=== PATIENT | female | born 1945 | race Caucasian/White ===

== ENCOUNTER → 2016-03-14 | Outpatient (REF) | payer MEDICARE ==
[2016-03-14 16:54] LABS: ALBUMIN 3.5 GM/DL (3.2-5.2); ALKALINE PHOSPHATASE 128 U/L (45-117); ALT/SGPT 17 U/L (12-78); ANION GAP 8 MEQ/L (8-16); AST/SGOT 13 U/L (15-37); BILIRUBIN,TOTAL 0.5 MG/DL (0.2-1.0); BLOOD UREA NITROGEN 10 MG/DL (7-18); CALCIUM LEVEL 9.2 MG/DL (8.8-10.2); CARBON DIOXIDE LEVEL 31 MEQ/L (21-32); CHLORIDE LEVEL 100 MEQ/L (98-107); CHOLESTEROL LEVEL 183 MG/DL (<200); CREATININE FOR GFR 0.72 MG/DL (0.55-1.02); GLOMERULAR FILTRATION RATE > 60.0 (>45); GLUCOSE, FASTING 92 MG/DL (80-110); POTASSIUM SERUM 4.4 MEQ/L (3.5-5.1); SODIUM LEVEL 139 MEQ/L (136-145); TRIGLYCERIDES LEVEL 94 MG/DL (<150)
== END ==
LOC: M SFHCPLAZ 11:11
PROVIDERS: ATTEND Family Medicine
DX: I10 Essential (primary) hypertension (principal); E78.00 Pure hypercholesterolemia, unspecified; F32.9 Major depressive disorder, single episode, unspecified; Z68.41 Body mass index [BMI] 40.0-44.9, adult
CPT/HCPCS: 36415; 80053; 80061; 84443; G0463

== ENCOUNTER → 2016-05-12 | Outpatient (REF) | payer MEDICARE ==
[2016-05-13 09:26] LABS: HIV SCRN NEGATIVE (NEGATIVE)
[2016-05-13 09:27] LABS: CONTROL LINE INT CTR LINE PRESENT; HIV SCRN1 NEGATIVE (NEGATIVE)
== END ==
LOC: M SFHCPLAZ 14:54
PROVIDERS: ATTEND Nurse Practitioner Family
DX: Z11.59 Encounter for screening for other viral diseases (principal); Z11.4 Encounter for screening for human immunodeficiency virus [HIV]; Z23 Encounter for immunization
CPT/HCPCS: 36415; 86803; 87806; 90662; G0008; G0463

== ENCOUNTER → 2016-10-05 | Outpatient (CLI) | payer MEDICARE, MEDICAID ==
--- NOTE | 2016-10-05 16:26 | REP ---
DOPPLER VENOUS ULTRASOUND LEFT LOWER EXTREMITY: 10/05/2016. Comparison: None: Clinical history: Left lower extremity pain, evaluate for DVT. Technique: The deep venous system of the left lower extremity is evaluated with garcia scale imaging, compression ultrasound, color imaging and duplex Doppler interrogation. Examination from the groin through the popliteal fossa into the proximal calf. Findings: There is full compressibility from the common femoral vein in the inguinal region through the popliteal vein. Color imaging confirms patency throughout the course of the deep venous system. There is respiratory variation and augmented flow at all levels. Impression: 1. No Doppler venous ultrasound evidence of DVT in the left lower extremity. Signed by Leon Masterson MD 10/05/2016 04:17 P
== END ==
LOC: M RAD 15:45
PROVIDERS: ATTEND Nurse Practitioner Family
DX: M79.605 Pain in left leg (principal); I83.90 Asymptomatic varicose veins of unspecified lower extremity
CPT/HCPCS: 93971; G0463

== ENCOUNTER 2017-11-01 11:13 | Inpatient (IN) | payer MEDICARE, MEDICAID ==
[2017-11-01] MEDS: NS 1,000 ML IV ×2 (11:50→17:00)
[2017-11-01 12:02] LABS: HEMATOCRIT 37.2 % (36.0-47.0); HEMOGLOBIN 13.5 g/dl (12.0-15.5); MEAN CORPUSCULAR HEMOGLOBIN 29.9 pg (27.0-33.0); MEAN CORPUSCULAR HGB CONC 36.3 g/dl (32.0-36.5); MEAN CORPUSCULAR VOLUME 82.3 fl (80.0-96.0); PLATELET COUNT, AUTOMATED 202 10^3/uL (150-450); RED BLOOD COUNT 4.52 10^6/uL (4.00-5.40); RED CELL DISTRIBUTION WIDTH 13.2 % (11.5-14.5); WHITE BLOOD COUNT 20.8 10^3/uL (4.0-10.0)
[2017-11-01 12:04] LABS: VENOUS BASE EXCESS -4.5 (-2.0-2.0); VENOUS HCO3 21.8 MEQ/L (23.0-27.0); VENOUS O2 SATURATION 64.1 % (60.0-80.0); VENOUS PARTIAL PRESSURE CO2 44.4 mmHg (38.0-50.0); VENOUS PARTIAL PRESSURE O2 35.4 mmHg (30.0-50.0); VENOUS PH 7.308 UNITS (7.330-7.430); VENOUS TOTAL CO2 23.1 MEQ/L (24.0-28.0)
[2017-11-01 12:10] LABS: POSITIVE MORPH POS FLAG
[2017-11-01 12:11] LABS: ADD MANUAL DIFFER YES; DIFF SLIDE NUMBER 253
[2017-11-01] MEDS ORDERED: NS IV (12:30)
[2017-11-01] MEDS ORDERED: DILUENT IV (12:30)
[2017-11-01 12:31] LABS: AMMONIA 17 uMOL/L (<32)
[2017-11-01 12:37] LABS: ALKALINE PHOSPHATASE 95 U/L (45-117); ALT/SGPT 36 U/L (12-78); ANION GAP 17 MEQ/L (8-16); AST/SGOT 44 U/L (7-37); BLOOD UREA NITROGEN 40 MG/DL (7-18); CALCIUM LEVEL 8.3 MG/DL (8.8-10.2); CARBON DIOXIDE LEVEL 20 MEQ/L (21-32); CHLORIDE LEVEL 84 MEQ/L (98-107); CPK CREATINE PHOSPHOKINASE 585 U/L (26-192); CREATININE FOR GFR 3.49 MG/DL (0.55-1.30); GLOMERULAR FILTRATION RATE 13.8 (>39); GLUCOSE, FASTING 85 MG/DL (70-100); POTASSIUM SERUM 3.5 MEQ/L (3.5-5.1); SODIUM LEVEL 121 MEQ/L (136-145)
[2017-11-01 12:38] LABS: ALBUMIN/GLOBULIN RATIO 0.67 (1.00-1.93); BILIRUBIN,DIRECT 0.3 MG/DL (0.0-0.2); BILIRUBIN,TOTAL 0.5 MG/DL (0.2-1.0); TROPONIN I 0.19 NG/ML (< 0.10)
[2017-11-01 12:43] LABS: CK-MB VALUE MASS 21.3 NG/ML (<3.6); MB/CK RELATIVE INDEX 3.64 (< OR =4); THYROID STIMULATING HORMONE 0.957 uIU/ML (0.358-3.740)
[2017-11-01 12:46] LABS: LYMPHOCYTES 5 % (16-52); MONOCYTES 4 % (0-8); NEUTROPHILS 91 % (35-75); PLATELET ESTIMATE NORMAL (NORMAL)
[2017-11-01 13:40] LABS: LACTIC ACID SEPSIS PROTOCOL 1.4 MMOL/L (0.4-2.0)
[2017-11-01] MEDS ORDERED: ONDANSETRON 4MG/2ML VIAL (J2405) IV (15:00)
[2017-11-01 15:02] LABS: FREE T4 1.37 NG/DL (0.76-1.46)
[2017-11-01 15:09] LABS: OSMOLALITY SERUM 256 MOSM/KG (280-301)
[2017-11-01] MEDS ORDERED: PILL CRUSHER/CUTTER 1 EACH XX (15:15)
[2017-11-01 15:19] LABS: OSMOLALITY URINE 231 MOSM/KG (500-800)
[2017-11-01 15:29] LABS: KETONE, URINE AUTO RFX NEGATIVE (NEGATIVE); NITRITE, URINE AUTO RFX NEGATIVE (NEGATIVE); RBC, URINE AUTO RFX 8 /HPF (0-3); SODIUM,RANDOM URINE 28 MEQ/L; SPECIFIC GRAVITY UR AUTO RFX 1.011 (1.002-1.035); SQUAM EPITHELIAL CELL UR AURFX 3 /HPF (0-6)
[2017-11-01 15:38] LABS: LEUKOCYTE ESTERASE UR AUTO RFX 3+ (NEGATIVE); WBC, URINE AUTO RFX TNTC /HPF (0-3)
[2017-11-01 18:33] LABS: ANION GAP 17 MEQ/L (8-16); BLOOD UREA NITROGEN 40 MG/DL (7-18); CARBON DIOXIDE LEVEL 19 MEQ/L (21-32); CHLORIDE LEVEL 87 MEQ/L (98-107); CK-MB VALUE MASS 17.2 NG/ML (<3.6); CPK CREATINE PHOSPHOKINASE 410 U/L (26-192); CREATININE FOR GFR 3.67 MG/DL (0.55-1.30); GLUCOSE, FASTING 69 MG/DL (70-100); MB/CK RELATIVE INDEX 4.19 (< OR =4); POTASSIUM SERUM 3.7 MEQ/L (3.5-5.1); SODIUM LEVEL 123 MEQ/L (136-145)
[2017-11-01] MEDS: ADVAIR HFA 115/21MCG INHALER INH (19:38)
[2017-11-01] MEDS: MONTELUKAST 10 MG TAB PO (21:00)
[2017-11-01] MEDS: NYSTATIN 100,000 UNITS/GM TOPICAL PWD 15 GM TOP (21:00)
[2017-11-01] MEDS: FAMOTIDINE 20 MG TAB PO (21:00)
[2017-11-02] MEDS: NS 1,000 ML IV ×3 (00:57→22:13)
[2017-11-02 01:08] LABS: ANION GAP 17 MEQ/L (8-16); BLOOD UREA NITROGEN 46 MG/DL (7-18); CALCIUM LEVEL 8.3 MG/DL (8.8-10.2); CARBON DIOXIDE LEVEL 20 MEQ/L (21-32); CHLORIDE LEVEL 85 MEQ/L (98-107); CK-MB VALUE MASS 12.5 NG/ML (<3.6); CPK CREATINE PHOSPHOKINASE 255 U/L (26-192); CREATININE FOR GFR 3.93 MG/DL (0.55-1.30); GLUCOSE, FASTING 91 MG/DL (70-100); POTASSIUM SERUM 3.3 MEQ/L (3.5-5.1); SODIUM LEVEL 122 MEQ/L (136-145)
[2017-11-02 06:55] LABS: MEAN CORPUSCULAR HEMOGLOBIN 29.6 pg (27.0-33.0); MEAN CORPUSCULAR HGB CONC 36.1 g/dl (32.0-36.5); PLATELET COUNT, AUTOMATED 216 10^3/uL (150-450); RED BLOOD COUNT 4.39 10^6/uL (4.00-5.40); RED CELL DISTRIBUTION WIDTH 13.5 % (11.5-14.5); WHITE BLOOD COUNT 18.5 10^3/uL (4.0-10.0)
[2017-11-02 07:10] LABS: ALBUMIN 1.8 GM/DL (3.2-5.2); ALBUMIN/GLOBULIN RATIO 0.46 (1.00-1.93); ALKALINE PHOSPHATASE 107 U/L (45-117); ALT/SGPT 33 U/L (12-78); ANION GAP 19 MEQ/L (8-16); AST/SGOT 32 U/L (7-37); BILIRUBIN,TOTAL 0.4 MG/DL (0.2-1.0); BLOOD UREA NITROGEN 51 MG/DL (7-18); CALCIUM LEVEL 8.2 MG/DL (8.8-10.2); CARBON DIOXIDE LEVEL 16 MEQ/L (21-32); CHLORIDE LEVEL 87 MEQ/L (98-107); CREATININE FOR GFR 4.05 MG/DL (0.55-1.30); GLOMERULAR FILTRATION RATE 11.6 (>39); GLUCOSE, FASTING 83 MG/DL (70-100); MAGNESIUM LEVEL 2.2 MG/DL (1.8-2.4); POTASSIUM SERUM 3.3 MEQ/L (3.5-5.1); SODIUM LEVEL 122 MEQ/L (136-145); TOTAL PROTEIN 5.7 GM/DL (6.4-8.2)
[2017-11-02] MEDS: ADVAIR HFA 115/21MCG INHALER INH ×2 (08:00→20:05)
[2017-11-02] MEDS: NS 500 ML IV (09:09)
[2017-11-02] MEDS: FAMOTIDINE 20 MG TAB PO ×2 (09:12→20:31)
[2017-11-02] MEDS ORDERED: MEROPENEM INJ 2 GM in NS 100 ML IV (11:00)
[2017-11-02 11:02] LABS: CK-MB VALUE MASS 8.1 NG/ML (<3.6); CPK CREATINE PHOSPHOKINASE 129 U/L (26-192); MB/CK RELATIVE INDEX 6.27 (< OR =4)
[2017-11-02] MEDS: NYSTATIN 100,000 UNITS/GM TOPICAL PWD 15 GM TOP ×2 (11:44→22:19)
[2017-11-02] MEDS: MEROPENEM INJ 500 MG in APPROPRIATE DILUENT 1 EA IV (11:44)
[2017-11-02] MEDS: ENOXAPARIN 30 MG/0.3 ML SYR (J1650) SC (11:53)
[2017-11-02 12:34] LABS: ANION GAP 16 MEQ/L (8-16); BLOOD UREA NITROGEN 51 MG/DL (7-18); CALCIUM LEVEL 8.1 MG/DL (8.8-10.2); CARBON DIOXIDE LEVEL 19 MEQ/L (21-32); CHLORIDE LEVEL 88 MEQ/L (98-107); CREATININE FOR GFR 4.27 MG/DL (0.55-1.30); GLOMERULAR FILTRATION RATE 10.9 (>39); GLUCOSE, FASTING 81 MG/DL (70-100); POTASSIUM SERUM 3.5 MEQ/L (3.5-5.1); SODIUM LEVEL 123 MEQ/L (136-145)
[2017-11-02 18:44] LABS: ANION GAP 18 MEQ/L (8-16); BLOOD UREA NITROGEN 53 MG/DL (7-18); CALCIUM LEVEL 8.3 MG/DL (8.8-10.2); CARBON DIOXIDE LEVEL 17 MEQ/L (21-32); CHLORIDE LEVEL 89 MEQ/L (98-107); CREATININE FOR GFR 4.34 MG/DL (0.55-1.30); GLOMERULAR FILTRATION RATE 10.7 (>39); GLUCOSE, FASTING 76 MG/DL (70-100); POTASSIUM SERUM 3.4 MEQ/L (3.5-5.1); SODIUM LEVEL 124 MEQ/L (136-145)
[2017-11-02] MEDS: MONTELUKAST 10 MG TAB PO (20:31)
[2017-11-03 00:43] LABS: ANION GAP 14 MEQ/L (8-16); BLOOD UREA NITROGEN 56 MG/DL (7-18); CALCIUM LEVEL 7.9 MG/DL (8.8-10.2); CARBON DIOXIDE LEVEL 21 MEQ/L (21-32); CHLORIDE LEVEL 89 MEQ/L (98-107); CREATININE FOR GFR 4.67 MG/DL (0.55-1.30); GLOMERULAR FILTRATION RATE 9.8 (>39); GLUCOSE, FASTING 93 MG/DL (70-100); POTASSIUM SERUM 3.1 MEQ/L (3.5-5.1); SODIUM LEVEL 124 MEQ/L (136-145)
[2017-11-03] MEDS: MEROPENEM INJ 500 MG in APPROPRIATE DILUENT 1 EA IV ×3 (00:50→23:47)
[2017-11-03 05:25] LABS: HEMATOCRIT 34.9 % (36.0-47.0); HEMOGLOBIN 12.6 g/dl (12.0-15.5); MEAN CORPUSCULAR HGB CONC 36.1 g/dl (32.0-36.5); MEAN CORPUSCULAR VOLUME 83.1 fl (80.0-96.0); PLATELET COUNT, AUTOMATED 243 10^3/uL (150-450); RED CELL DISTRIBUTION WIDTH 13.6 % (11.5-14.5); WHITE BLOOD COUNT 22.1 10^3/uL (4.0-10.0)
[2017-11-03 05:41] LABS: ANION GAP 15 MEQ/L (8-16); BLOOD UREA NITROGEN 56 MG/DL (7-18); CARBON DIOXIDE LEVEL 19 MEQ/L (21-32); CHLORIDE LEVEL 91 MEQ/L (98-107); CREATININE FOR GFR 4.64 MG/DL (0.55-1.30); GLOMERULAR FILTRATION RATE 9.9 (>39); GLUCOSE, FASTING 92 MG/DL (70-100); POTASSIUM SERUM 3.3 MEQ/L (3.5-5.1); SODIUM LEVEL 125 MEQ/L (136-145)
[2017-11-03] MEDS: NS 1,000 ML IV ×2 (06:57→16:08)
[2017-11-03] MEDS: ADVAIR HFA 115/21MCG INHALER INH ×2 (07:17→20:00)
[2017-11-03] MEDS: ENOXAPARIN 30 MG/0.3 ML SYR (J1650) SC (08:00)
[2017-11-03] MEDS: FAMOTIDINE 20 MG TAB PO ×2 (08:00→20:51)
[2017-11-03] MEDS: NYSTATIN 100,000 UNITS/GM TOPICAL PWD 15 GM TOP ×2 (08:00→20:53)
[2017-11-03 12:46] LABS: ANION GAP 14 MEQ/L (8-16); BLOOD UREA NITROGEN 59 MG/DL (7-18); CALCIUM LEVEL 7.9 MG/DL (8.8-10.2); CARBON DIOXIDE LEVEL 22 MEQ/L (21-32); CHLORIDE LEVEL 89 MEQ/L (98-107); CREATININE FOR GFR 4.88 MG/DL (0.55-1.30); GLOMERULAR FILTRATION RATE 9.3 (>39); GLUCOSE, FASTING 110 MG/DL (70-100); POTASSIUM SERUM 3.6 MEQ/L (3.5-5.1); SODIUM LEVEL 125 MEQ/L (136-145)
[2017-11-03 15:03] LABS: CORTISOL PM 32.6 UG/DL (3.1-16.7)
[2017-11-03] MEDS: THIAMINE 100 MG TAB PO (18:29)
[2017-11-03] MEDS: MONTELUKAST 10 MG TAB PO (20:51)
[2017-11-03] MEDS: NICOTINE 21MG/24HR 1 EA TRANSDERMAL TD (20:52)
[2017-11-03] MEDS: LORazepam 2 MG TAB PO (21:49)
[2017-11-04] MEDS: NS 1,000 ML IV ×2 (03:00→11:48)
[2017-11-04 05:11] LABS: HEMATOCRIT 37.8 % (36.0-47.0); HEMOGLOBIN 13.1 g/dl (12.0-15.5); MEAN CORPUSCULAR HEMOGLOBIN 29.6 pg (27.0-33.0); MEAN CORPUSCULAR HGB CONC 34.7 g/dl (32.0-36.5); MEAN CORPUSCULAR VOLUME 85.3 fl (80.0-96.0); PLATELET COUNT, AUTOMATED 223 10^3/uL (150-450); RED BLOOD COUNT 4.43 10^6/uL (4.00-5.40)
[2017-11-04] MEDS: ADVAIR HFA 115/21MCG INHALER INH ×2 (07:20→20:00)
[2017-11-04] MEDS: MULTIVITAMINS/MINERALS THERAP 1 TAB PO (09:00)
[2017-11-04] MEDS: FOLIC ACID 1 MG TAB PO (09:00)
[2017-11-04] MEDS: THIAMINE 100 MG TAB PO ×2 (09:00→20:43)
[2017-11-04] MEDS: ENOXAPARIN 30 MG/0.3 ML SYR (J1650) SC (09:00)
[2017-11-04] MEDS: FAMOTIDINE 20 MG TAB PO ×2 (09:00→20:43)
[2017-11-04] MEDS: NYSTATIN 100,000 UNITS/GM TOPICAL PWD 15 GM TOP ×2 (09:01→20:44)
[2017-11-04 11:11] LABS: ALBUMIN 1.6 GM/DL (3.2-5.2); ANION GAP 14 MEQ/L (8-16); BLOOD UREA NITROGEN 64 MG/DL (7-18); CARBON DIOXIDE LEVEL 18 MEQ/L (21-32); CHLORIDE LEVEL 93 MEQ/L (98-107); CREATININE FOR GFR 5.07 MG/DL (0.55-1.30); GLOMERULAR FILTRATION RATE 8.9 (>39); GLUCOSE, FASTING 112 MG/DL (70-100); PHOSPHORUS LEVEL 4.1 MG/DL (2.5-4.9); POTASSIUM SERUM 3.5 MEQ/L (3.5-5.1); SODIUM LEVEL 125 MEQ/L (136-145)
[2017-11-04] MEDS: AMPICILLIN SOD/SULBACTAM SOD 1.5 GM in D5W MINI-BAG PLUS 50 ML IV (11:48)
[2017-11-04 12:08] LABS: OSMOLALITY URINE 187 MOSM/KG (500-800)
[2017-11-04 12:32] LABS: CREATININE,RANDOM URINE 60.9 MG/DL; SODIUM,RANDOM URINE 25 MEQ/L
[2017-11-04] MEDS: FUROSEMIDE 100 MG/10 ML VIAL (J1940) IV (13:01)
[2017-11-04] MEDS: SODIUM BICARBONATE 325 MG TAB PO ×2 (14:08→20:43)
[2017-11-04] MEDS: LORazepam 2 MG TAB PO ×2 (17:42→21:51)
[2017-11-04] MEDS: NICOTINE 21MG/24HR 1 EA TRANSDERMAL TD (20:43)
[2017-11-04] MEDS: MONTELUKAST 10 MG TAB PO (20:43)
[2017-11-05 05:32] LABS: HEMATOCRIT 37.9 % (36.0-47.0); HEMOGLOBIN 13.3 g/dl (12.0-15.5); MEAN CORPUSCULAR HEMOGLOBIN 29.6 pg (27.0-33.0); MEAN CORPUSCULAR HGB CONC 35.1 g/dl (32.0-36.5); MEAN CORPUSCULAR VOLUME 84.2 fl (80.0-96.0); PLATELET COUNT, AUTOMATED 251 10^3/uL (150-450); RED CELL DISTRIBUTION WIDTH 14.2 % (11.5-14.5); WHITE BLOOD COUNT 22.9 10^3/uL (4.0-10.0)
[2017-11-05 05:50] LABS: ANION GAP 13 MEQ/L (8-16); BLOOD UREA NITROGEN 72 MG/DL (7-18); CALCIUM LEVEL 8.5 MG/DL (8.8-10.2); CARBON DIOXIDE LEVEL 16 MEQ/L (21-32); CHLORIDE LEVEL 94 MEQ/L (98-107); CREATININE FOR GFR 5.36 MG/DL (0.55-1.30); GLOMERULAR FILTRATION RATE 8.4 (>39); GLUCOSE, FASTING 87 MG/DL (70-100); POTASSIUM SERUM 3.8 MEQ/L (3.5-5.1); SODIUM LEVEL 123 MEQ/L (136-145)
[2017-11-05] MEDS: ADVAIR HFA 115/21MCG INHALER INH ×2 (07:23→20:00)
[2017-11-05] MEDS: LORazepam 2 MG TAB PO (08:35)
[2017-11-05] MEDS: ENOXAPARIN 30 MG/0.3 ML SYR (J1650) SC (08:35)
[2017-11-05] MEDS: MULTIVITAMINS/MINERALS THERAP 1 TAB PO (08:35)
[2017-11-05] MEDS: SODIUM BICARBONATE 325 MG TAB PO ×3 (08:36→20:04)
[2017-11-05] MEDS: THIAMINE 100 MG TAB PO ×2 (08:37→20:04)
[2017-11-05] MEDS: FOLIC ACID 1 MG TAB PO (08:37)
[2017-11-05] MEDS: FAMOTIDINE 20 MG TAB PO ×2 (08:37→20:03)
[2017-11-05] MEDS: NYSTATIN 100,000 UNITS/GM TOPICAL PWD 15 GM TOP ×2 (08:37→20:05)
[2017-11-05] MEDS ORDERED: LORazepam 1 MG TAB PO (11:15)
[2017-11-05] MEDS: LevoFLOXacin IV 750 MG in APPROPRIATE DILUENT 1 EA IV (12:37)
[2017-11-05] MEDS: TOLVAPTAN 7.5 MG HALF-TAB PO (12:38)
[2017-11-05 19:34] LABS: ALBUMIN 1.7 GM/DL (3.2-5.2); ANION GAP 13 MEQ/L (8-16); BLOOD UREA NITROGEN 72 MG/DL (7-18); CARBON DIOXIDE LEVEL 19 MEQ/L (21-32); CHLORIDE LEVEL 94 MEQ/L (98-107); CREATININE FOR GFR 5.62 MG/DL (0.55-1.30); GLOMERULAR FILTRATION RATE 7.9 (>39); GLUCOSE, FASTING 82 MG/DL (70-100); PHOSPHORUS LEVEL 5.7 MG/DL (2.5-4.9); POTASSIUM SERUM 4.3 MEQ/L (3.5-5.1); SODIUM LEVEL 126 MEQ/L (136-145)
[2017-11-05] MEDS: NICOTINE 21MG/24HR 1 EA TRANSDERMAL TD (20:03)
[2017-11-05] MEDS: MONTELUKAST 10 MG TAB PO (20:04)
[2017-11-06 06:04] LABS: HEMATOCRIT 35.3 % (36.0-47.0); HEMOGLOBIN 12.2 g/dl (12.0-15.5); MEAN CORPUSCULAR HEMOGLOBIN 30.1 pg (27.0-33.0); MEAN CORPUSCULAR HGB CONC 34.6 g/dl (32.0-36.5); MEAN CORPUSCULAR VOLUME 87.2 fl (80.0-96.0); PLATELET COUNT, AUTOMATED 212 10^3/uL (150-450); RED BLOOD COUNT 4.05 10^6/uL (4.00-5.40); RED CELL DISTRIBUTION WIDTH 14.4 % (11.5-14.5); WHITE BLOOD COUNT 22.1 10^3/uL (4.0-10.0)
[2017-11-06 06:17] LABS: ALBUMIN 1.8 GM/DL (3.2-5.2); ANION GAP 14 MEQ/L (8-16); BLOOD UREA NITROGEN 83 MG/DL (7-18); CALCIUM LEVEL 8.3 MG/DL (8.8-10.2); CARBON DIOXIDE LEVEL 17 MEQ/L (21-32); CHLORIDE LEVEL 95 MEQ/L (98-107); CREATININE FOR GFR 5.82 MG/DL (0.55-1.30); GLOMERULAR FILTRATION RATE 7.6 (>39); GLUCOSE, FASTING 80 MG/DL (70-100); POTASSIUM SERUM 4.4 MEQ/L (3.5-5.1); SODIUM LEVEL 126 MEQ/L (136-145)
[2017-11-06] MEDS: ADVAIR HFA 115/21MCG INHALER INH ×2 (08:00→20:00)
[2017-11-06] MEDS: ENOXAPARIN 30 MG/0.3 ML SYR (J1650) SC (09:07)
[2017-11-06] MEDS: SODIUM BICARBONATE 325 MG TAB PO ×3 (09:07→20:00)
[2017-11-06] MEDS: FAMOTIDINE 20 MG TAB PO ×2 (09:07→20:00)
[2017-11-06] MEDS: MULTIVITAMINS/MINERALS THERAP 1 TAB PO (09:07)
[2017-11-06] MEDS: THIAMINE 100 MG TAB PO (09:07)
[2017-11-06] MEDS: NYSTATIN 100,000 UNITS/GM TOPICAL PWD 15 GM TOP ×2 (09:08→20:01)
[2017-11-06] MEDS: FOLIC ACID 1 MG TAB PO (09:08)
[2017-11-06] MEDS ORDERED: SLF 3 ML SYR IV (11:00)
[2017-11-06] MEDS: SLF 3 ML SYR IV ×2 (12:54→20:00)
[2017-11-06] MEDS: NS 1,000 ML IV (12:55)
[2017-11-06] MEDS: NICOTINE 21MG/24HR 1 EA TRANSDERMAL TD (20:00)
[2017-11-06] MEDS: MONTELUKAST 10 MG TAB PO (20:00)
[2017-11-07] MEDS: SLF 3 ML SYR IV ×3 (04:08→22:00)
[2017-11-07 06:41] LABS: HEMATOCRIT 34.2 % (36.0-47.0); HEMOGLOBIN 11.9 g/dl (12.0-15.5); MEAN CORPUSCULAR HEMOGLOBIN 29.7 pg (27.0-33.0); MEAN CORPUSCULAR HGB CONC 34.8 g/dl (32.0-36.5); MEAN CORPUSCULAR VOLUME 85.3 fl (80.0-96.0); PLATELET COUNT, AUTOMATED 231 10^3/uL (150-450); RED BLOOD COUNT 4.01 10^6/uL (4.00-5.40); RED CELL DISTRIBUTION WIDTH 14.4 % (11.5-14.5)
[2017-11-07 07:09] LABS: ALBUMIN 1.8 GM/DL (3.2-5.2); ANION GAP 12 MEQ/L (8-16); BLOOD UREA NITROGEN 79 MG/DL (7-18); CALCIUM LEVEL 8.3 MG/DL (8.8-10.2); CARBON DIOXIDE LEVEL 18 MEQ/L (21-32); CHLORIDE LEVEL 97 MEQ/L (98-107); CREATININE FOR GFR 6.03 MG/DL (0.55-1.30); GLOMERULAR FILTRATION RATE 7.3 (>39); GLUCOSE, FASTING 88 MG/DL (70-100); MAGNESIUM LEVEL 2.1 MG/DL (1.8-2.4); PHOSPHORUS LEVEL 5.6 MG/DL (2.5-4.9); POTASSIUM SERUM 4.3 MEQ/L (3.5-5.1); SODIUM LEVEL 127 MEQ/L (136-145)
[2017-11-07] MEDS: ADVAIR HFA 115/21MCG INHALER INH ×2 (07:46→21:00)
[2017-11-07] MEDS: NYSTATIN 100,000 UNITS/GM TOPICAL PWD 15 GM TOP ×2 (09:05→20:56)
[2017-11-07] MEDS: ENOXAPARIN 30 MG/0.3 ML SYR (J1650) SC (09:05)
[2017-11-07] MEDS: MULTIVITAMINS/MINERALS THERAP 1 TAB PO (09:05)
[2017-11-07] MEDS: FOLIC ACID 1 MG TAB PO (09:06)
[2017-11-07] MEDS: SODIUM BICARBONATE 325 MG TAB PO ×3 (09:07→20:54)
[2017-11-07] MEDS: FAMOTIDINE 20 MG TAB PO ×2 (09:07→20:54)
[2017-11-07] MEDS: LevoFLOXacin IV 500 MG in APPROPRIATE DILUENT 1 EA IV (12:01)
[2017-11-07] MEDS: ACETAMINOPHEN TAB 650MG DOSE (2X325MG) PO (15:24)
[2017-11-07 16:15] LABS: CHOLESTEROL LEVEL 120 MG/DL (<200); HDL CHOLESTEROL 30 MG/DL (>40); HEPATITIS B SURFACE ANTIBODY NEGATIVE (POSITIVE); HEPATITIS B SURFACE ANTIGEN NEGATIVE (NEGATIVE); HEPATITIS C VIRUS ABY INDEX 0.1 INDEX (<0.8); LDL CHOLESTEROL 59 MG/DL (<100); NON-HDL-C 90 MG/DL; TRIGLYCERIDES LEVEL 153 MG/DL (<150)
[2017-11-07 17:16] LABS: HEPATITIS B CORE ANTIBODY IGM NEGATIVE (NEGATIVE)
[2017-11-07 19:08] LABS: ESTIMATED AVERAGE GLUCOSE 120 MG/DL (60-110); HEMOGLOBIN A1c 5.8 %
[2017-11-07] MEDS: MONTELUKAST 10 MG TAB PO (20:54)
[2017-11-07] MEDS: NICOTINE 21MG/24HR 1 EA TRANSDERMAL TD (20:55)
[2017-11-08] MEDS: ACETAMINOPHEN TAB 650MG DOSE (2X325MG) PO ×2 (00:15→14:59)
[2017-11-08] MEDS: LORazepam 0.5 MG TAB PO (01:38)
[2017-11-08 05:41] LABS: HEMATOCRIT 33.6 % (36.0-47.0); HEMOGLOBIN 11.7 g/dl (12.0-15.5); MEAN CORPUSCULAR HEMOGLOBIN 29.5 pg (27.0-33.0); MEAN CORPUSCULAR HGB CONC 34.8 g/dl (32.0-36.5); MEAN CORPUSCULAR VOLUME 84.8 fl (80.0-96.0); PLATELET COUNT, AUTOMATED 183 10^3/uL (150-450); RED BLOOD COUNT 3.96 10^6/uL (4.00-5.40); RED CELL DISTRIBUTION WIDTH 14.3 % (11.5-14.5); WHITE BLOOD COUNT 16.4 10^3/uL (4.0-10.0)
[2017-11-08 05:57] LABS: ANION GAP 12 MEQ/L (8-16); BLOOD UREA NITROGEN 80 MG/DL (7-18); CALCIUM LEVEL 8.7 MG/DL (8.8-10.2); CARBON DIOXIDE LEVEL 20 MEQ/L (21-32); CHLORIDE LEVEL 99 MEQ/L (98-107); CREATININE FOR GFR 6.19 MG/DL (0.55-1.30); GLOMERULAR FILTRATION RATE 7.1 (>39); GLUCOSE, FASTING 94 MG/DL (70-100); PHOSPHORUS LEVEL 5.1 MG/DL (2.5-4.9); POTASSIUM SERUM 4.2 MEQ/L (3.5-5.1); SODIUM LEVEL 131 MEQ/L (136-145)
[2017-11-08] MEDS: SLF 3 ML SYR IV ×3 (06:00→22:07)
[2017-11-08] MEDS: ADVAIR HFA 115/21MCG INHALER INH ×2 (07:47→20:53)
[2017-11-08 10:12] LABS: HEPATITIS B CORE ANTIBODY IGG Negative (Negative)
[2017-11-08] MEDS: FAMOTIDINE 20 MG TAB PO ×2 (11:04→22:04)
[2017-11-08] MEDS: FOLIC ACID 1 MG TAB PO (11:04)
[2017-11-08] MEDS: SODIUM BICARBONATE 325 MG TAB PO ×3 (11:05→21:00)
[2017-11-08] MEDS: ENOXAPARIN 30 MG/0.3 ML SYR (J1650) SC (11:05)
[2017-11-08] MEDS: NYSTATIN 100,000 UNITS/GM TOPICAL PWD 15 GM TOP ×2 (11:05→22:07)
[2017-11-08] MEDS: MULTIVITAMINS/MINERALS THERAP 1 TAB PO (11:05)
[2017-11-08] MEDS ORDERED: HEPARIN 1,000 UNITS/ML 10ML VIAL (FOR RADIOLOGY& DIALYSIS ONLY) As Ordered (12:12)
[2017-11-08] MEDS ORDERED: LIDOCAINE 2% MDV 20 ML VIAL As Ordered (12:12)
[2017-11-08] MEDS: HEPARIN 1,000 UNITS/ML 10ML VIAL (FOR RADIOLOGY& DIALYSIS ONLY) IV (14:30)
[2017-11-08] MEDS: HEPARIN 1,000 UNITS/ML 10ML VIAL (FOR RADIOLOGY& DIALYSIS ONLY) XX (14:30)
[2017-11-08] MEDS: MONTELUKAST 10 MG TAB PO (21:00)
[2017-11-08] MEDS: NICOTINE 21MG/24HR 1 EA TRANSDERMAL TD (22:06)
[2017-11-09] MEDS: SLF 3 ML SYR IV ×3 (06:00→21:38)
[2017-11-09 06:01] LABS: HEMATOCRIT 33.8 % (36.0-47.0); HEMOGLOBIN 11.5 g/dl (12.0-15.5); MEAN CORPUSCULAR HEMOGLOBIN 29.6 pg (27.0-33.0); MEAN CORPUSCULAR VOLUME 86.9 fl (80.0-96.0); PLATELET COUNT, AUTOMATED 191 10^3/uL (150-450); RED BLOOD COUNT 3.89 10^6/uL (4.00-5.40); RED CELL DISTRIBUTION WIDTH 14.7 % (11.5-14.5); WHITE BLOOD COUNT 16.9 10^3/uL (4.0-10.0)
[2017-11-09 06:45] LABS: ANION GAP 9 MEQ/L (8-16); BLOOD UREA NITROGEN 57 MG/DL (7-18); CALCIUM LEVEL 8.6 MG/DL (8.8-10.2); CARBON DIOXIDE LEVEL 21 MEQ/L (21-32); CHLORIDE LEVEL 103 MEQ/L (98-107); CREATININE FOR GFR 4.84 MG/DL (0.55-1.30); GLOMERULAR FILTRATION RATE 9.4 (>39); GLUCOSE, FASTING 92 MG/DL (70-100); PHOSPHORUS LEVEL 4.8 MG/DL (2.5-4.9); POTASSIUM SERUM 4.3 MEQ/L (3.5-5.1); SODIUM LEVEL 133 MEQ/L (136-145)
[2017-11-09] MEDS: ADVAIR HFA 115/21MCG INHALER INH ×2 (08:01→20:00)
[2017-11-09] MEDS: ENOXAPARIN 30 MG/0.3 ML SYR (J1650) SC (09:43)
[2017-11-09] MEDS: NYSTATIN 100,000 UNITS/GM TOPICAL PWD 15 GM TOP ×2 (09:44→20:35)
[2017-11-09] MEDS: FAMOTIDINE 20 MG TAB PO ×2 (09:44→20:33)
[2017-11-09] MEDS: FOLIC ACID 1 MG TAB PO (09:44)
[2017-11-09] MEDS: SODIUM BICARBONATE 325 MG TAB PO ×3 (09:44→20:33)
[2017-11-09] MEDS: LevoFLOXacin IV 500 MG in APPROPRIATE DILUENT 1 EA IV (09:44)
[2017-11-09] MEDS: MULTIVITAMINS/MINERALS THERAP 1 TAB PO (09:45)
[2017-11-09] MEDS: LORazepam 0.5 MG TAB PO ×2 (12:52→21:32)
[2017-11-09] MEDS: HEPARIN 1,000 UNITS/ML 10ML VIAL (FOR RADIOLOGY& DIALYSIS ONLY) XX (18:28)
[2017-11-09] MEDS: ALTEPLASE 2 MG/2 ML VIAL (J2997 PER 1MG) XX (18:28)
[2017-11-09] MEDS: HEPARIN 1,000 UNITS/ML 10ML VIAL (FOR RADIOLOGY& DIALYSIS ONLY) IV (18:28)
[2017-11-09] MEDS: MONTELUKAST 10 MG TAB PO (20:33)
[2017-11-09] MEDS: NICOTINE 21MG/24HR 1 EA TRANSDERMAL TD (20:35)
[2017-11-10] MEDS: SLF 3 ML SYR IV ×3 (05:31→20:31)
[2017-11-10 06:12] LABS: HEMATOCRIT 34.7 % (36.0-47.0); HEMOGLOBIN 11.6 g/dl (12.0-15.5); MEAN CORPUSCULAR HEMOGLOBIN 29.5 pg (27.0-33.0); MEAN CORPUSCULAR HGB CONC 33.4 g/dl (32.0-36.5); MEAN CORPUSCULAR VOLUME 88.3 fl (80.0-96.0); PLATELET COUNT, AUTOMATED 183 10^3/uL (150-450); RED BLOOD COUNT 3.93 10^6/uL (4.00-5.40); RED CELL DISTRIBUTION WIDTH 14.6 % (11.5-14.5); WHITE BLOOD COUNT 14.7 10^3/uL (4.0-10.0)
[2017-11-10 06:29] LABS: ALBUMIN 2.2 GM/DL (3.2-5.2); ANION GAP 7 MEQ/L (8-16); BLOOD UREA NITROGEN 41 MG/DL (7-18); CALCIUM LEVEL 8.8 MG/DL (8.8-10.2); CARBON DIOXIDE LEVEL 25 MEQ/L (21-32); CHLORIDE LEVEL 102 MEQ/L (98-107); GLOMERULAR FILTRATION RATE 11.8 (>39); GLUCOSE, FASTING 96 MG/DL (70-100); PHOSPHORUS LEVEL 3.8 MG/DL (2.5-4.9); POTASSIUM SERUM 4.3 MEQ/L (3.5-5.1); SODIUM LEVEL 134 MEQ/L (136-145)
[2017-11-10] MEDS: ADVAIR HFA 115/21MCG INHALER INH ×2 (07:13→20:00)
[2017-11-10] MEDS: FAMOTIDINE 20 MG TAB PO ×2 (10:10→20:30)
[2017-11-10] MEDS: MULTIVITAMINS/MINERALS THERAP 1 TAB PO (10:10)
[2017-11-10] MEDS: ENOXAPARIN 30 MG/0.3 ML SYR (J1650) SC (10:10)
[2017-11-10] MEDS: FOLIC ACID 1 MG TAB PO (10:10)
[2017-11-10] MEDS: NYSTATIN 100,000 UNITS/GM TOPICAL PWD 15 GM TOP ×2 (10:11→20:31)
[2017-11-10] MEDS: LORazepam 0.5 MG TAB PO (17:23)
[2017-11-10] MEDS: MONTELUKAST 10 MG TAB PO (20:30)
[2017-11-10] MEDS: NICOTINE 21MG/24HR 1 EA TRANSDERMAL TD (20:31)
[2017-11-11] MEDS: LORazepam 0.5 MG TAB PO (00:21)
[2017-11-11] MEDS: ACETAMINOPHEN TAB 650MG DOSE (2X325MG) PO (05:00)
[2017-11-11] MEDS: LevoFLOXacin 500 MG TABLET PO (05:01)
[2017-11-11 05:59] LABS: HEMOGLOBIN 10.8 g/dl (12.0-15.5); MEAN CORPUSCULAR HEMOGLOBIN 29.8 pg (27.0-33.0); MEAN CORPUSCULAR HGB CONC 33.8 g/dl (32.0-36.5); MEAN CORPUSCULAR VOLUME 88.4 fl (80.0-96.0); PLATELET COUNT, AUTOMATED 143 10^3/uL (150-450); RED BLOOD COUNT 3.62 10^6/uL (4.00-5.40); RED CELL DISTRIBUTION WIDTH 14.7 % (11.5-14.5)
[2017-11-11] MEDS: SLF 3 ML SYR IV ×3 (06:00→20:28)
[2017-11-11 06:35] LABS: ALBUMIN 2.1 GM/DL (3.2-5.2); ANION GAP 10 MEQ/L (8-16); BLOOD UREA NITROGEN 43 MG/DL (7-18); CALCIUM LEVEL 8.5 MG/DL (8.8-10.2); CARBON DIOXIDE LEVEL 22 MEQ/L (21-32); CHLORIDE LEVEL 104 MEQ/L (98-107); CREATININE FOR GFR 3.88 MG/DL (0.55-1.30); GLOMERULAR FILTRATION RATE 12.2 (>39); GLUCOSE, FASTING 98 MG/DL (70-100); PHOSPHORUS LEVEL 4.1 MG/DL (2.5-4.9); POTASSIUM SERUM 4.2 MEQ/L (3.5-5.1); SODIUM LEVEL 136 MEQ/L (136-145)
[2017-11-11] MEDS: ENOXAPARIN 30 MG/0.3 ML SYR (J1650) SC (09:00)
[2017-11-11] MEDS: ADVAIR HFA 115/21MCG INHALER INH ×2 (09:26→20:26)
[2017-11-11] MEDS: FAMOTIDINE 20 MG TAB PO ×2 (10:32→20:26)
[2017-11-11] MEDS: FOLIC ACID 1 MG TAB PO (10:33)
[2017-11-11] MEDS: NYSTATIN 100,000 UNITS/GM TOPICAL PWD 15 GM TOP ×2 (10:33→20:27)
[2017-11-11] MEDS: MULTIVITAMINS/MINERALS THERAP 1 TAB PO (10:33)
[2017-11-11] MEDS: MONTELUKAST 10 MG TAB PO (20:26)
[2017-11-11] MEDS: NICOTINE 21MG/24HR 1 EA TRANSDERMAL TD (20:27)
[2017-11-12 05:41] LABS: HEMATOCRIT 31.7 % (36.0-47.0); HEMOGLOBIN 10.6 g/dl (12.0-15.5); MEAN CORPUSCULAR HEMOGLOBIN 29.5 pg (27.0-33.0); MEAN CORPUSCULAR HGB CONC 33.4 g/dl (32.0-36.5); MEAN CORPUSCULAR VOLUME 88.3 fl (80.0-96.0); PLATELET COUNT, AUTOMATED 140 10^3/uL (150-450); RED BLOOD COUNT 3.59 10^6/uL (4.00-5.40); RED CELL DISTRIBUTION WIDTH 14.5 % (11.5-14.5); WHITE BLOOD COUNT 11.8 10^3/uL (4.0-10.0)
[2017-11-12 05:52] LABS: ALBUMIN 2.1 GM/DL (3.2-5.2); ANION GAP 9 MEQ/L (8-16); BLOOD UREA NITROGEN 46 MG/DL (7-18); CALCIUM LEVEL 8.4 MG/DL (8.8-10.2); CARBON DIOXIDE LEVEL 23 MEQ/L (21-32); CHLORIDE LEVEL 104 MEQ/L (98-107); CREATININE FOR GFR 3.91 MG/DL (0.55-1.30); GLOMERULAR FILTRATION RATE 12.1 (>39); GLUCOSE, FASTING 88 MG/DL (70-100); PHOSPHORUS LEVEL 4.7 MG/DL (2.5-4.9); POTASSIUM SERUM 4.4 MEQ/L (3.5-5.1); SODIUM LEVEL 136 MEQ/L (136-145)
[2017-11-12] MEDS: SLF 3 ML SYR IV ×3 (06:00→20:41)
[2017-11-12] MEDS: FOLIC ACID 1 MG TAB PO (09:42)
[2017-11-12] MEDS: FAMOTIDINE 20 MG TAB PO ×2 (09:42→20:40)
[2017-11-12] MEDS: MULTIVITAMINS/MINERALS THERAP 1 TAB PO (09:42)
[2017-11-12] MEDS: NYSTATIN 100,000 UNITS/GM TOPICAL PWD 15 GM TOP ×2 (09:42→20:41)
[2017-11-12] MEDS: ENOXAPARIN 30 MG/0.3 ML SYR (J1650) SC (09:46)
[2017-11-12] MEDS: ADVAIR HFA 115/21MCG INHALER INH ×2 (09:50→20:59)
[2017-11-12] MEDS: ACETAMINOPHEN TAB 650MG DOSE (2X325MG) PO (16:15)
[2017-11-12] MEDS: MONTELUKAST 10 MG TAB PO (20:40)
[2017-11-12] MEDS: NICOTINE 21MG/24HR 1 EA TRANSDERMAL TD (20:41)
[2017-11-12] MEDS: LORazepam 0.5 MG TAB PO (22:09)
[2017-11-13] MEDS: ACETAMINOPHEN TAB 650MG DOSE (2X325MG) PO (05:02)
[2017-11-13] MEDS: SLF 3 ML SYR IV ×3 (05:03→20:10)
[2017-11-13] MEDS: LevoFLOXacin 500 MG TABLET PO (05:03)
[2017-11-13 05:25] LABS: HEMATOCRIT 32.2 % (36.0-47.0); MEAN CORPUSCULAR HEMOGLOBIN 29.8 pg (27.0-33.0); MEAN CORPUSCULAR HGB CONC 34.2 g/dl (32.0-36.5); MEAN CORPUSCULAR VOLUME 87.3 fl (80.0-96.0); PLATELET COUNT, AUTOMATED 145 10^3/uL (150-450); RED BLOOD COUNT 3.69 10^6/uL (4.00-5.40); RED CELL DISTRIBUTION WIDTH 14.6 % (11.5-14.5); WHITE BLOOD COUNT 13.7 10^3/uL (4.0-10.0)
[2017-11-13 05:42] LABS: ALBUMIN 2.3 GM/DL (3.2-5.2); ANION GAP 11 MEQ/L (8-16); BLOOD UREA NITROGEN 43 MG/DL (7-18); CALCIUM LEVEL 8.7 MG/DL (8.8-10.2); CARBON DIOXIDE LEVEL 22 MEQ/L (21-32); CHLORIDE LEVEL 105 MEQ/L (98-107); CREATININE FOR GFR 3.77 MG/DL (0.55-1.30); GLOMERULAR FILTRATION RATE 12.6 (>39); GLUCOSE, FASTING 97 MG/DL (70-100); PHOSPHORUS LEVEL 4.3 MG/DL (2.5-4.9); POTASSIUM SERUM 4.5 MEQ/L (3.5-5.1); SODIUM LEVEL 138 MEQ/L (136-145)
[2017-11-13] MEDS: NYSTATIN 100,000 UNITS/GM TOPICAL PWD 15 GM TOP ×2 (09:00→20:09)
[2017-11-13] MEDS: ENOXAPARIN 30 MG/0.3 ML SYR (J1650) SC (09:00)
[2017-11-13] MEDS: FAMOTIDINE 20 MG TAB PO ×2 (09:00→20:08)
[2017-11-13] MEDS: MULTIVITAMINS/MINERALS THERAP 1 TAB PO (09:00)
[2017-11-13] MEDS: FOLIC ACID 1 MG TAB PO (09:00)
[2017-11-13] MEDS: ADVAIR HFA 115/21MCG INHALER INH ×2 (11:29→20:35)
[2017-11-13 12:38] LABS: C REACTIVE PROTEIN QUANTITATIV 7.57 MG/DL (0.00-0.30)
[2017-11-13] MEDS: MONTELUKAST 10 MG TAB PO (20:08)
[2017-11-13] MEDS: NICOTINE 21MG/24HR 1 EA TRANSDERMAL TD (20:09)
[2017-11-14] MEDS: SLF 3 ML SYR IV ×3 (06:01→21:00)
[2017-11-14 06:37] LABS: HEMATOCRIT 33.1 % (36.0-47.0); MEAN CORPUSCULAR HEMOGLOBIN 29.3 pg (27.0-33.0); MEAN CORPUSCULAR HGB CONC 33.2 g/dl (32.0-36.5); PLATELET COUNT, AUTOMATED 139 10^3/uL (150-450); RED BLOOD COUNT 3.76 10^6/uL (4.00-5.40); RED CELL DISTRIBUTION WIDTH 14.1 % (11.5-14.5)
[2017-11-14] MEDS: ADVAIR HFA 115/21MCG INHALER INH ×2 (08:00→21:28)
[2017-11-14 08:59] LABS: ALBUMIN 2.4 GM/DL (3.2-5.2); ANION GAP 10 MEQ/L (8-16); BLOOD UREA NITROGEN 42 MG/DL (7-18); CALCIUM LEVEL 8.2 MG/DL (8.8-10.2); CARBON DIOXIDE LEVEL 23 MEQ/L (21-32); CHLORIDE LEVEL 103 MEQ/L (98-107); CREATININE FOR GFR 3.55 MG/DL (0.55-1.30); GLOMERULAR FILTRATION RATE 13.5 (>39); GLUCOSE, FASTING 87 MG/DL (70-100); PHOSPHORUS LEVEL 4.3 MG/DL (2.5-4.9); POTASSIUM SERUM 4.7 MEQ/L (3.5-5.1); SODIUM LEVEL 136 MEQ/L (136-145)
[2017-11-14] MEDS: NYSTATIN 100,000 UNITS/GM TOPICAL PWD 15 GM TOP ×2 (09:00→21:00)
[2017-11-14] MEDS: ENOXAPARIN 30 MG/0.3 ML SYR (J1650) SC (09:30)
[2017-11-14] MEDS: MULTIVITAMINS/MINERALS THERAP 1 TAB PO (09:30)
[2017-11-14] MEDS: FAMOTIDINE 20 MG TAB PO ×2 (09:30→20:50)
[2017-11-14] MEDS: LORazepam 0.5 MG TAB PO (09:30)
[2017-11-14] MEDS: FOLIC ACID 1 MG TAB PO (09:30)
[2017-11-14] MEDS: METOPROLOL TART 25 MG TABLET PO ×2 (12:37→20:52)
[2017-11-14] MEDS: NICOTINE 21MG/24HR 1 EA TRANSDERMAL TD (20:49)
[2017-11-14] MEDS: MONTELUKAST 10 MG TAB PO (20:50)
[2017-11-15] MEDS: SLF 3 ML SYR IV (05:29)
[2017-11-15] MEDS: LevoFLOXacin 500 MG TABLET PO (05:48)
[2017-11-15 07:10] LABS: HEMATOCRIT 30.2 % (36.0-47.0); HEMOGLOBIN 10.2 g/dl (12.0-15.5); MEAN CORPUSCULAR HEMOGLOBIN 29.7 pg (27.0-33.0); MEAN CORPUSCULAR HGB CONC 33.8 g/dl (32.0-36.5); PLATELET COUNT, AUTOMATED 139 10^3/uL (150-450); RED BLOOD COUNT 3.43 10^6/uL (4.00-5.40); RED CELL DISTRIBUTION WIDTH 14.2 % (11.5-14.5); WHITE BLOOD COUNT 8.9 10^3/uL (4.0-10.0)
[2017-11-15 07:24] LABS: ALBUMIN 2.2 GM/DL (3.2-5.2); ANION GAP 10 MEQ/L (8-16); BLOOD UREA NITROGEN 42 MG/DL (7-18); CALCIUM LEVEL 8.4 MG/DL (8.8-10.2); CARBON DIOXIDE LEVEL 24 MEQ/L (21-32); CHLORIDE LEVEL 104 MEQ/L (98-107); CREATININE FOR GFR 3.25 MG/DL (0.55-1.30); GLOMERULAR FILTRATION RATE 14.9 (>39); GLUCOSE, FASTING 90 MG/DL (70-100); PHOSPHORUS LEVEL 4.6 MG/DL (2.5-4.9); POTASSIUM SERUM 4.5 MEQ/L (3.5-5.1); SODIUM LEVEL 138 MEQ/L (136-145)
[2017-11-15] MEDS: ADVAIR HFA 115/21MCG INHALER INH (08:24)
[2017-11-15] MEDS: FAMOTIDINE 20 MG TAB PO (09:13)
[2017-11-15] MEDS: NYSTATIN 100,000 UNITS/GM TOPICAL PWD 15 GM TOP (09:14)
[2017-11-15] MEDS: MULTIVITAMINS/MINERALS THERAP 1 TAB PO (09:14)
[2017-11-15] MEDS: ENOXAPARIN 30 MG/0.3 ML SYR (J1650) SC (09:14)
[2017-11-15] MEDS: FOLIC ACID 1 MG TAB PO (09:14)
[2017-11-15] MEDS: METOPROLOL TART 25 MG TABLET PO (09:14)
== END 2017-11-15 12:50 | disposition home health service (06) | DRG 871 ==
LOC: M MS4PR 11-13 21:54 → M PCU 11-02 15:42 → M ED 11:13 → M ED INP 14:56
PROC: 02HV33Z Insertion of Infusion Device into Superior Vena Cava, Percutaneous Approach (ICD-10-PCS; principal; 2017-11-08)
PROC: 0JH63XZ Insertion of Tunneled Vascular Access Device into Chest Subcutaneous Tissue and Fascia, Percutaneous Approach (ICD-10-PCS; 2017-11-08)
PROC: 5A1D70Z Performance of Urinary Filtration, Intermittent, Less than 6 Hours Per Day (ICD-10-PCS; 2017-11-08)
DX: A41.51 Sepsis due to Escherichia coli [E. coli] (principal); N17.0 Acute kidney failure with tubular necrosis; E87.1 Hypo-osmolality and hyponatremia; Z68.41 Body mass index [BMI] 40.0-44.9, adult; E87.2 Acidosis; N39.0 Urinary tract infection, site not specified; E66.01 Morbid (severe) obesity due to excess calories; R65.20 Severe sepsis without septic shock; G47.33 Obstructive sleep apnea (adult) (pediatric); F10.10 Alcohol abuse, uncomplicated; J45.909 Unspecified asthma, uncomplicated; I10 Essential (primary) hypertension; K21.9 Gastro-esophageal reflux disease without esophagitis; Z79.899 Other long term (current) drug therapy; B35.8 Other dermatophytoses; G25.81 Restless legs syndrome; M19.90 Unspecified osteoarthritis, unspecified site; E87.5 Hyperkalemia; Z86.73 Personal history of transient ischemic attack (TIA), and cerebral infarction without residual deficits; Z90.11 Acquired absence of right breast and nipple; Z90.12 Acquired absence of left breast and nipple; N39.3 Stress incontinence (female) (male); F17.210 Nicotine dependence, cigarettes, uncomplicated; E83.39 Other disorders of phosphorus metabolism; D63.1 Anemia in chronic kidney disease

== ENCOUNTER → 2017-11-17 | Outpatient (REF) | payer MEDICARE, MEDICAID ==
[2017-11-17 15:01] LABS: HEMOGLOBIN 10.7 g/dl (12.0-15.5); MEAN CORPUSCULAR HEMOGLOBIN 29.6 pg (27.0-33.0); MEAN CORPUSCULAR HGB CONC 33.4 g/dl (32.0-36.5); MEAN CORPUSCULAR VOLUME 88.4 fl (80.0-96.0); PLATELET COUNT, AUTOMATED 181 10^3/uL (150-450); RED BLOOD COUNT 3.62 10^6/uL (4.00-5.40); WHITE BLOOD COUNT 7.6 10^3/uL (4.0-10.0)
[2017-11-17 16:28] LABS: ALBUMIN 2.6 GM/DL (3.2-5.2); ALBUMIN/GLOBULIN RATIO 0.62 (1.00-1.93); ALKALINE PHOSPHATASE 77 U/L (45-117); ALT/SGPT 28 U/L (12-78); ANION GAP 8 MEQ/L (8-16); AST/SGOT 23 U/L (7-37); BILIRUBIN,TOTAL 0.6 MG/DL (0.2-1.0); BLOOD UREA NITROGEN 36 MG/DL (7-18); CALCIUM LEVEL 8.3 MG/DL (8.8-10.2); CARBON DIOXIDE LEVEL 28 MEQ/L (21-32); CHLORIDE LEVEL 101 MEQ/L (98-107); CREATININE FOR GFR 3.13 MG/DL (0.55-1.30); GLOMERULAR FILTRATION RATE 15.6 (>39); GLUCOSE, FASTING 89 MG/DL (70-100); POTASSIUM SERUM 4.8 MEQ/L (3.5-5.1); SODIUM LEVEL 137 MEQ/L (136-145); TOTAL PROTEIN 6.8 GM/DL (6.4-8.2)
== END ==
LOC: M SFHCPLAZ 13:59 → M SFHCADAM 14:00
DX: N17.9 Acute kidney failure, unspecified (principal)
CPT/HCPCS: 80053

== ENCOUNTER → 2017-11-22 | Outpatient (REF) | payer MEDICARE, MEDICAID | LOC: M SFHCPLAZ 11:00 | DX: N17.9 Acute kidney failure, unspecified (principal) ==

== ENCOUNTER → 2017-11-23 | Outpatient (REF) | payer MEDICARE, MEDICAID | LOC: M LAB REF 17:03 | DX: N39.0 Urinary tract infection, site not specified (principal) | CPT/HCPCS: 87086 ==

== ENCOUNTER 2018-09-20 15:49 | Emergency (ER) | payer MEDICARE, MEDICAID ==
[~2018-09-20] VITALS: Ht 167.6 cm; Wt 114.7 kg
[~2018-09-20 15:49] MED LIST: ADV250INH INH; AMLO25TA PO; BENA20TA8 PO; FOLI1TAB11 PO; FURO20TA2 PO; LEVA1TAB2 PO; METO1TAB87 PO; MONT10TA2 PO; NICO21PAT TD; RANI150T PO; SPIR-10 PO
[2018-09-20 18:32] LABS: BASO # 0.1 10^3/uL (0.0-0.2); BASO % 0.7 % (0.0-1.0); EOS # 0.2 10^3/uL (0.0-0.50); HEMATOCRIT 39.7 % (36.0-47.0); HEMOGLOBIN 12.8 g/dl (12.0-15.5); LYMPH # 1.9 10^3/uL (1.5-4.5); LYMPH % 17.5 % (24.0-44.0); MEAN CORPUSCULAR HEMOGLOBIN 30.2 pg (27.0-33.0); MEAN CORPUSCULAR HGB CONC 32.2 g/dl (32.0-36.5); MEAN CORPUSCULAR VOLUME 93.6 fl (80.0-96.0); MONO # 0.8 10^3/uL (0.0-0.8); MONO % 7.8 % (0.0-5.0); NEUTROPHILS # 7.6 10^3/uL (1.8-7.7); PLATELET COUNT, AUTOMATED 199 10^3/uL (150-450); RED BLOOD COUNT 4.24 10^6/uL (4.00-5.40); WHITE BLOOD COUNT 10.7 10^3/uL (4.0-10.0)
[2018-09-20 19:19] LABS: ERYTHROCYTE SEDIMENTATION RATE 28 mm/hr (0-30)
--- NOTE | 2018-09-20 19:26 | REPVR ---
EXAM: US Duplex Left Lower Extremity Veins, Limited EXAM DATE/TIME: 09/20/2018 6:39 PM CLINICAL HISTORY: 72 years old, female; Other: Red streak, hot to touch lt lateral leg; Additional info: Red streak, warmth TECHNIQUE: Imaging protocol: Real-time Duplex ultrasound of the Left Lower Extremity with 2-D garcia scale, color Doppler flow and spectral waveform analysis with image documentation. Limited exam focused on the left lower extremity veins. COMPARISON: US Duplex, Ext,LOWER veins,unilat LEFT 10/05/2016 3:58 PM FINDINGS: Left deep veins: Unremarkable. The common femoral, proximal profunda femoral, femoral and popliteal veins are patent without thrombus. Normal compressibility, augmentation response and Doppler waveforms. Left superficial veins: Thrombosed superficial varicosities along the lateral aspect of the knee. Saphenofemoral junction is patent without thrombus. Soft tissues: Unremarkable. IMPRESSION: 1. No sonographic evidence of deep vein thrombosis. 2. Thrombosed superficial varicosities along the lateral aspect of the knee. Electronically signed by: Jaziel Kaba On 09/20/2018 19:25:43 PM
[2018-09-20 19:57] VITALS: BP 154/76
== END 2018-09-20 20:03 | disposition home or self-care (01) ==
LOC: M ED 15:49
DX: I80.02 Phlebitis and thrombophlebitis of superficial vessels of left lower extremity (principal); I10 Essential (primary) hypertension; E78.5 Hyperlipidemia, unspecified; J44.9 Chronic obstructive pulmonary disease, unspecified; Z72.0 Tobacco use; Z79.899 Other long term (current) drug therapy

== ENCOUNTER 2018-12-09 14:19 | Emergency (ER) | payer MEDICARE, MEDICAID ==
[~2018-12-09] VITALS: Ht 167.6 cm; Wt 118.2 kg
[2018-12-09 14:20] VITALS: BP 134/66
[2018-12-09] MEDS ORDERED: PRED20TA PO (15:27)
[2018-12-09] MEDS ORDERED: diphenhydrAMINE 25 MG CAP PO ONE (15:30)
[2018-12-09] MEDS ORDERED: predniSONE 20 MG TAB PO ONE (15:30)
== END 2018-12-09 16:03 | disposition home or self-care (01) ==
LOC: M ED 14:19
DX: T78.3XXA Angioneurotic edema, initial encounter (principal); Y92.9 Unspecified place or not applicable; Y93.9 Activity, unspecified; F17.200 Nicotine dependence, unspecified, uncomplicated; E78.00 Pure hypercholesterolemia, unspecified; I10 Essential (primary) hypertension; J45.909 Unspecified asthma, uncomplicated; J44.9 Chronic obstructive pulmonary disease, unspecified; G47.30 Sleep apnea, unspecified; K21.9 Gastro-esophageal reflux disease without esophagitis; F32.9 Major depressive disorder, single episode, unspecified; Z87.448 Personal history of other diseases of urinary system; Z79.899 Other long term (current) drug therapy

== ENCOUNTER 2020-07-12 12:43 | Emergency (ER) | payer OTHER, MEDICAID ==
[~2020-07-12] VITALS: Ht 170.2 cm; Wt 110.6 kg
[~2020-07-12 12:43] MED LIST changes: +MONT10TA10 PO; -MONT10TA2 PO; +PRED20TA PO
--- NOTE | 2020-07-12 13:38 | REP ---
INDICATION: fall into coffee table left rib pain. COMPARISON: Chest 11/01/2017. TECHNIQUE: Four views left ribs, frontal view chest. FINDINGS: I see no evidence of left rib fracture or bone lesion. There is mild elevation of left hemidiaphragm. There is mild bibasilar fibro atelectatic change. There is no pneumothorax or pleural effusion. Heart is normal in size. There is some calcification of the thoracic aorta. IMPRESSION: No radiographic evidence of left rib fracture. <Electronically signed by Robert Hsu > 07/12/20 [id number]
[2020-07-12] MEDS ORDERED: ONDANSETRON 4MG/2ML VIAL IV ONE (14:15)
[2020-07-12] MEDS ORDERED: MORPHINE 2 MG/ML 1ML VIAL (J2270) IV ONE (14:15)
[2020-07-12] MEDS ORDERED: ISOVUE-370 76% 100ML VIAL As Ordered ONE (14:59)
--- NOTE | 2020-07-12 15:48 | REP ---
INDICATION: fall into coffee table, bruising L flank, sig pain COMPARISON: 11/01/2017. TECHNIQUE: CT Scan of the abdomen and pelvis was performed with intravenous administration of 100 cc of Isovue 370, without oral contrast. Sagittal and coronal reconstruction images are performed. FINDINGS: Lung bases: There are bibasilar fibrotic changes with a calcified granuloma again seen in the left upper lobe. Liver: Normal Gallbladder: Unremarkable. Spleen: Normal. Adrenals: There are stable bilateral adrenal adenomas. Pancreas: Normal. Kidneys: There are atrophic changes of both kidneys. There is moderate calcific plaque at the origin of both renal arteries suggesting bilateral renal artery stenosis. Small and large bowel: There is mild left colonic diverticulosis with no acute bowel inflammation. No free air is seen. Free fluid: None. Abdominal aorta: No aneurysm or dissection. Adenopathy: None. Appendix: Not inflamed. Osseous structures: There are degenerative changes of the spine without compression deformity. There are nondisplaced fractures of the anterior ends of the left 6th and 7th ribs. Pelvis: No mass. There is a 1.7 cm calcification in the right ovary. IMPRESSION: There are nondisplaced fractures of the anterior ends of the left 6th and 7th ribs. No free air or free fluid. No other acute finding. <Electronically signed by Robert Hsu > 07/12/20 [id number]
[2020-07-12] MEDS ORDERED: HYDR-3713 PO (16:22)
[2020-07-12] MEDS ORDERED: NORCO, ANEXSIA 5/325MG TABLET (HYDROcodone/ACETAMINOPHEN) PO ONE (16:25)
[2020-07-12 16:53] VITALS: BP 154/55
== END 2020-07-12 16:43 | disposition home or self-care (01) ==
LOC: M ED 12:43
DX: S22.42XA Multiple fractures of ribs, left side, initial encounter for closed fracture (principal); S30.1XXA Contusion of abdominal wall, initial encounter; W22.8XXA Striking against or struck by other objects, initial encounter; Y92.009 Unspecified place in unspecified non-institutional (private) residence as the place of occurrence of the external cause; Y93.89 Activity, other specified; Y99.9 Unspecified external cause status; I10 Essential (primary) hypertension; E78.5 Hyperlipidemia, unspecified; K21.9 Gastro-esophageal reflux disease without esophagitis; J45.909 Unspecified asthma, uncomplicated; J44.9 Chronic obstructive pulmonary disease, unspecified; Z86.73 Personal history of transient ischemic attack (TIA), and cerebral infarction without residual deficits; F17.200 Nicotine dependence, unspecified, uncomplicated; Z79.899 Other long term (current) drug therapy
CPT/HCPCS: 71101; 74177; 80047; 86850; 86900; 86901; 94010; 99284; Q9967

== ENCOUNTER → 2020-09-28 | Outpatient (REF) | payer OTHER, MEDICAID ==
[~2020-09-28] MED LIST changes: +BENA-8 PO; -BENA20TA8 PO; +HYDR-3713 PO; -MONT10TA10 PO; +MONT10TA97 PO
[2020-09-28 13:39] LABS: HEMOGLOBIN 13.2 g/dl (12.0-15.5); MEAN CORPUSCULAR HGB CONC 31.4 g/dl (32.0-36.5); MEAN CORPUSCULAR VOLUME 92.3 fl (80.0-96.0); PLATELET COUNT, AUTOMATED 266 10^3/uL (150-450); RED BLOOD COUNT 4.55 10^6/uL (4.00-5.40); WHITE BLOOD COUNT 6.1 10^3/uL (4.0-10.0)
[2020-09-28 13:55] LABS: HEMOGLOBIN A1c 5.4 %
[2020-09-28 14:09] LABS: ALBUMIN 3.4 GM/DL (3.2-5.2); BILIRUBIN,TOTAL 0.4 MG/DL (0.2-1.0); CALCIUM LEVEL 8.9 MG/DL (8.8-10.2); CHOLESTEROL RISK RATIO 3.492 (<5); CREATININE FOR GFR 1.94 MG/DL (0.55-1.30); GLOMERULAR FILTRATION RATE 26.9 (>39); POTASSIUM SERUM 4.7 MEQ/L (3.5-5.1)
[2020-09-28 14:11] LABS: FOLATE 5.1 NG/ML
[2020-09-28 14:14] LABS: CREATININE, URINE 46.9 MG/DL; MALB URINE SIEMENS 35.5 MG/L; MAU/CREAT RATIO 75.6 MCG/MG (0.0-30.0)
== END ==
LOC: M SFHCADAM 11:37
PROVIDERS: ATTEND Internal Medicine
DX: G47.33 Obstructive sleep apnea (adult) (pediatric) (principal); J45.909 Unspecified asthma, uncomplicated; F10.20 Alcohol dependence, uncomplicated; K21.9 Gastro-esophageal reflux disease without esophagitis; I10 Essential (primary) hypertension; R73.01 Impaired fasting glucose; E78.00 Pure hypercholesterolemia, unspecified

== ENCOUNTER 2021-11-20 15:23 | Inpatient (IN) | payer MEDICARE, MEDICAID ==
[~2021-11-20] VITALS: Ht 167.6 cm; Wt 127.0 kg
[2021-11-20 17:13] LABS: BASO # 0.1 10^3/uL (0.0-0.2); BASO % 0.4 % (0.0-1.0); EOS % 0.2 % (0.0-3.0); HEMATOCRIT 41.8 % (36.0-47.0); HEMOGLOBIN 13.8 g/dl (12.0-15.5); LYMPH # 0.8 10^3/uL (1.5-5.0); MONO # 0.7 10^3/uL (0.0-0.8); MONO % 4.3 % (2.0-8.0); NEUTROPHILS # 14.4 10^3/uL (1.5-8.5); PLATELET COUNT, AUTOMATED 313 10^3/uL (150-450); RED BLOOD COUNT 4.92 10^6/uL (4.00-5.40); WHITE BLOOD COUNT 16.1 10^3/uL (4.0-10.0)
[2021-11-20] MEDS ORDERED: cefTRIAXone SOD 1 GM in D5W MINI-BAG PLUS 50 ML IV ONE (17:45)
[2021-11-20 17:48] LABS: CREATININE FOR GFR 2.01 MG/DL (0.55-1.30); GLOMERULAR FILTRATION RATE 25.7 (>39); POTASSIUM SERUM 4.7 MEQ/L (3.5-5.1)
[2021-11-20 17:49] LABS: ALBUMIN 3.3 GM/DL (3.2-5.2); BILIRUBIN,DIRECT 0.2 MG/DL (0.0-0.2); BILIRUBIN,TOTAL 0.8 MG/DL (0.2-1.0); TOTAL PROTEIN 7.5 GM/DL (6.4-8.2)
[2021-11-20 17:50] LABS: CK-MB VALUE MASS 9.6 NG/ML (<3.6); MB/CK RELATIVE INDEX 1.5 (< OR =4)
[2021-11-20 17:59] LABS: RSV AMPLIFICATION NEGATIVE (NEGATIVE)
[2021-11-20] MEDS ORDERED: NS 1,000 ML IV ONE (18:05)
[2021-11-20] MEDS ORDERED: AMLO2.5T3 PO (18:15)
[2021-11-20] MEDS ORDERED: FOLI1TAB11 PO (18:15)
[2021-11-20] MEDS ORDERED: METO1TAB87 PO (18:15)
[2021-11-20] MEDS ORDERED: COMMENTS (18:23)
[2021-11-20] MEDS ORDERED: HOME MED LIST COMPLETE! XX SCH (18:25)
[2021-11-20 19:52] LABS: CREATININE,RANDOM URINE 26.9 MG/DL
[2021-11-20] MEDS ORDERED: ADVAIR HFA 115/21MCG INHALER INH SCH (20:00)
[2021-11-20 20:15] LABS: FREE T4 1.08 NG/DL (0.76-1.46); THYROID STIMULATING HORMONE 1.36 uIU/ML (0.358-3.740)
[2021-11-20] MEDS ORDERED: ALBUTEROL SULFATE 2.5 MG/0.5 ML INH NEB SOLN NEB PRN (20:45)
[2021-11-20] MEDS ORDERED: METOPROLOL TART 25 MG TABLET PO SCH (21:00)
[2021-11-20 21:49] LABS: CALCIUM LEVEL 9.2 MG/DL (8.8-10.2); CREATININE FOR GFR 2.19 MG/DL (0.55-1.30); GLOMERULAR FILTRATION RATE 23.3 (>39); POTASSIUM SERUM 4.6 MEQ/L (3.5-5.1)
[2021-11-20] MEDS: IPRATROPIUM 0.5MG/ALBUTEROL 2.5MG INH SOL UD 3ML (DUONEB) NEB SCH (22:33)
[2021-11-21] MEDS: NS 1,000 ML IV SCH ×3 (01:28→23:40)
[2021-11-21] MEDS: IPRATROPIUM 0.5MG/ALBUTEROL 2.5MG INH SOL UD 3ML (DUONEB) NEB SCH ×5 (03:55→20:21)
[2021-11-21] MEDS: HEPARIN SOD (PORCINE) 5000UNITS/ML 1ML VIAL/SYRINGE SC SCH ×3 (06:07→20:31)
[2021-11-21 08:00] VITALS: BP 131/97
[2021-11-21] MEDS ORDERED: MONTELUKAST 10 MG TAB PO SCH (09:00)
[2021-11-21 12:01] VITALS: O2SAT 94
[2021-11-21 12:44] LABS: HEMOGLOBIN 12.6 g/dl (12.0-15.5); MEAN CORPUSCULAR HGB CONC 32.3 g/dl (32.0-36.5); MEAN CORPUSCULAR VOLUME 86.7 fl (80.0-96.0); PLATELET COUNT, AUTOMATED 263 10^3/uL (150-450); WHITE BLOOD COUNT 9.4 10^3/uL (4.0-10.0)
[2021-11-21 13:22] LABS: BILIRUBIN,TOTAL 0.4 MG/DL (0.2-1.0); CALCIUM LEVEL 8.5 MG/DL (8.8-10.2); CREATININE FOR GFR 1.96 MG/DL (0.55-1.30); GLOMERULAR FILTRATION RATE 26.5 (>39); POTASSIUM SERUM 3.9 MEQ/L (3.5-5.1); TOTAL PROTEIN 6.8 GM/DL (6.4-8.2)
[2021-11-21 14:00] VITALS: BP 152/79
[2021-11-21 15:45] VITALS: BP 135/61
[2021-11-21 16:11] VITALS: O2SAT 95
[2021-11-21] MEDS: ACETAMINOPHEN TAB 650MG DOSE (2X325MG) PO PRN (16:26)
[2021-11-21] MEDS: cefTRIAXone SOD 1 GM in D5W MINI-BAG PLUS 50 ML IV SCH (18:16)
[2021-11-21 19:43] VITALS: BP 131/60
[2021-11-21] MEDS: NYSTATIN OINTMENT 15 GM TOP SCH (20:31)
[2021-11-22] VITALS (9 sets, daily range): BP systolic 82–132; BP diastolic 56–63; O2SAT 94–95
[2021-11-22] MEDS: IPRATROPIUM 0.5MG/ALBUTEROL 2.5MG INH SOL UD 3ML (DUONEB) NEB SCH ×7 (00:50→23:58)
[2021-11-22] MEDS: NS 1,000 ML IV SCH ×2 (05:10→17:24)
[2021-11-22] MEDS: HEPARIN SOD (PORCINE) 5000UNITS/ML 1ML VIAL/SYRINGE SC SCH ×3 (05:11→22:05)
[2021-11-22] MEDS: ACETAMINOPHEN TAB 650MG DOSE (2X325MG) PO PRN (06:37)
[2021-11-22] MEDS ORDERED: PREVNAR-20 VACCINE 0.5ML SYRINGE IM.IMMUN ONE (09:00)
[2021-11-22 09:51] LABS: HEMATOCRIT 36.8 % (36.0-47.0); HEMOGLOBIN 11.6 g/dl (12.0-15.5); MEAN CORPUSCULAR HEMOGLOBIN 27.5 pg (27.0-33.0); MEAN CORPUSCULAR HGB CONC 31.5 g/dl (32.0-36.5); MEAN CORPUSCULAR VOLUME 87.2 fl (80.0-96.0); PLATELET COUNT, AUTOMATED 266 10^3/uL (150-450); RED BLOOD COUNT 4.22 10^6/uL (4.00-5.40); WHITE BLOOD COUNT 7.6 10^3/uL (4.0-10.0)
[2021-11-22] MEDS: NYSTATIN OINTMENT 15 GM TOP SCH ×2 (09:58→22:06)
[2021-11-22 10:11] LABS: CALCIUM LEVEL 8.5 MG/DL (8.8-10.2); CREATININE FOR GFR 1.97 MG/DL (0.55-1.30); GLOMERULAR FILTRATION RATE 26.3 (>39); POTASSIUM SERUM 4.1 MEQ/L (3.5-5.1)
[2021-11-22 11:46] LABS: ABG BASE EXCESS -6.2 (-2.0-2.0); ABG HCO3 19.4 MEQ/L (22.0-26.0); ABG PARTIAL PRESSURE CO2 38.6 mmHg (35.0-45.0); ABG PARTIAL PRESSURE O2 76.9 mmHg (75.0-100.0); ABG STANDARD HCO3 19.4 MEQ/L (22.0-26.0); ABG TOTAL CO2 20.6 MEQ/L (23.0-31.0); ABG pH (ARTERIAL) 7.319 UNITS (7.350-7.450)
[2021-11-22] MEDS: cefTRIAXone SOD 1 GM in D5W MINI-BAG PLUS 50 ML IV SCH (17:23)
[2021-11-23] VITALS: BP 139/65
[2021-11-23 04:00] VITALS: BP 128/61
[2021-11-23] MEDS: IPRATROPIUM 0.5MG/ALBUTEROL 2.5MG INH SOL UD 3ML (DUONEB) NEB SCH (04:00)
[2021-11-23] MEDS: HEPARIN SOD (PORCINE) 5000UNITS/ML 1ML VIAL/SYRINGE SC SCH (06:17)
[2021-11-23 06:52] LABS: HEMATOCRIT 35.2 % (36.0-47.0); HEMOGLOBIN 11.2 g/dl (12.0-15.5); MEAN CORPUSCULAR HEMOGLOBIN 28.1 pg (27.0-33.0); MEAN CORPUSCULAR HGB CONC 31.8 g/dl (32.0-36.5); MEAN CORPUSCULAR VOLUME 88.4 fl (80.0-96.0); PLATELET COUNT, AUTOMATED 237 10^3/uL (150-450); RED BLOOD COUNT 3.98 10^6/uL (4.00-5.40); WHITE BLOOD COUNT 8.5 10^3/uL (4.0-10.0)
[2021-11-23 07:21] LABS: CALCIUM LEVEL 8.6 MG/DL (8.8-10.2); CREATININE FOR GFR 1.95 MG/DL (0.55-1.30); GLOMERULAR FILTRATION RATE 26.6 (>39)
[2021-11-23 08:00] VITALS: BP 145/74
[2021-11-23] MEDS: LEVALBUTEROL 1.25 MG/0.5 ML CONCENTRATE NEB INH SCH ×2 (08:00→11:15)
[2021-11-23] MEDS ORDERED: LACTOBACILLUS ACIDOPHILUS CAP (BACID) PO SCH (08:00)
[2021-11-23] MEDS ORDERED: LEVALBUTEROL 1.25 MG/0.5 ML CONCENTRATE NEB INH PRN (08:00)
[2021-11-23] MEDS ORDERED: AMOX500C PO (08:04)
[2021-11-23] MEDS ORDERED: ELIQ2.5T PO (08:04)
[2021-11-23] MEDS ORDERED: METO1TAB87 PO (08:04)
[2021-11-23] MEDS ORDERED: APIXABAN 2.5 MG TAB (ELIQUIS) PO SCH (09:00)
[2021-11-23] MEDS ORDERED: AMOXICILLIN 500 MG CAP PO SCH (09:00)
[2021-11-23] MEDS ORDERED: amLODIPine 5 MG TAB PO SCH (09:00)
[2021-11-23] MEDS ORDERED: METOPROLOL TART 12.5 MG PER 1/2 TAB PO SCH (09:00)
[2021-11-23 09:50] VITALS: BP 145/74
[2021-11-23] MEDS: NYSTATIN OINTMENT 15 GM TOP SCH (09:51)
[2021-11-23] MEDS ORDERED: NORV5TAB PO (11:46)
[2021-11-23] MEDS ORDERED: SELF1KIT MC (11:47)
== END 2021-11-23 13:55 | disposition home health service (06) | DRG 872 ==
LOC: M ED 15:23 → M ED INP 19:37 → M MSPAV 11-21 15:38 → M PCU 11-22 15:06
PROVIDERS: ADMIT Internal Medicine; ATTEND Internal Medicine
DX: A41.9 Sepsis, unspecified organism (principal); N39.0 Urinary tract infection, site not specified; M62.82 Rhabdomyolysis; E87.1 Hypo-osmolality and hyponatremia; Z86.73 Personal history of transient ischemic attack (TIA), and cerebral infarction without residual deficits; F17.210 Nicotine dependence, cigarettes, uncomplicated; G47.33 Obstructive sleep apnea (adult) (pediatric); E66.9 Obesity, unspecified; I12.9 Hypertensive chronic kidney disease with stage 1 through stage 4 chronic kidney disease, or unspecified chronic kidney disease; K21.9 Gastro-esophageal reflux disease without esophagitis; M54.50 Low back pain, unspecified; G25.81 Restless legs syndrome; J45.909 Unspecified asthma, uncomplicated; B96.20 Unspecified Escherichia coli [E. coli] as the cause of diseases classified elsewhere; N18.30 Chronic kidney disease, stage 3 unspecified; E78.5 Hyperlipidemia, unspecified; M19.90 Unspecified osteoarthritis, unspecified site; Z20.822 Contact with and (suspected) exposure to COVID-19; Z79.899 Other long term (current) drug therapy; Z91.14 Patient's other noncompliance with medication regimen; Z68.41 Body mass index [BMI] 40.0-44.9, adult

== ENCOUNTER → 2021-12-03 | Outpatient (REF) | payer MEDICARE, MEDICAID, OTHER ==
[~2021-12-03] MED LIST changes: +AMLO2.5T3 PO; +AMOX500C PO; +COMMENTS; +ELIQ2.5T PO; +NORV5TAB PO; +SELF1KIT MC
[2021-12-03 17:51] LABS: HEMATOCRIT 41.7 % (36.0-47.0); MEAN CORPUSCULAR HEMOGLOBIN 27.6 pg (27.0-33.0); MEAN CORPUSCULAR HGB CONC 31.2 g/dl (32.0-36.5); MEAN CORPUSCULAR VOLUME 88.5 fl (80.0-96.0); PLATELET COUNT, AUTOMATED 309 10^3/uL (150-450); RED BLOOD COUNT 4.71 10^6/uL (4.00-5.40); WHITE BLOOD COUNT 10.2 10^3/uL (4.0-10.0)
[2021-12-03 18:15] LABS: HEMOGLOBIN A1c 5.4 %
[2021-12-03 18:34] LABS: ALBUMIN 3.5 GM/DL (3.2-5.2); BILIRUBIN,TOTAL 0.5 MG/DL (0.2-1.0); CALCIUM LEVEL 9.2 MG/DL (8.8-10.2); CHOLESTEROL RISK RATIO 2.213 (<5); CREATININE FOR GFR 2.09 MG/DL (0.55-1.30); GLOMERULAR FILTRATION RATE 24.6 (>39); MAGNESIUM LEVEL 2.2 MG/DL (1.8-2.4); TOTAL PROTEIN 7.4 GM/DL (6.4-8.2)
== END ==
LOC: M SHH 16:57
PROVIDERS: ATTEND Family Medicine
DX: R73.01 Impaired fasting glucose (principal); R60.0 Localized edema; E78.00 Pure hypercholesterolemia, unspecified; F10.20 Alcohol dependence, uncomplicated; Z86.73 Personal history of transient ischemic attack (TIA), and cerebral infarction without residual deficits

== ENCOUNTER 2022-06-23 19:07 | Inpatient (IN) | payer MEDICARE, MEDICAID ==
[~2022-06-23] VITALS: Ht 167.6 cm; Wt 108.7 kg
[2022-06-23 19:56] LABS: BASO # 0.1 10^3/uL (0.0-0.2); BASO % 1.2 % (0.0-1.0); EOS # 0.3 10^3/uL (0.0-0.5); EOS % 3.1 % (0.0-3.0); HEMATOCRIT 38.4 % (36.0-47.0); HEMOGLOBIN 12.5 g/dl (12.0-15.5); LYMPH # 1.1 10^3/uL (1.5-5.0); LYMPH % 11.6 % (24.0-44.0); MEAN CORPUSCULAR HEMOGLOBIN 28.5 pg (27.0-33.0); MEAN CORPUSCULAR HGB CONC 32.6 g/dl (32.0-36.5); MEAN CORPUSCULAR VOLUME 87.5 fl (80.0-96.0); MONO # 0.7 10^3/uL (0.0-0.8); MONO % 7.6 % (2.0-8.0); NEUTROPHILS % 75.4 % (36.0-66.0); PLATELET COUNT, AUTOMATED 273 10^3/uL (150-450); RED BLOOD COUNT 4.39 10^6/uL (4.00-5.40); WHITE BLOOD COUNT 9.3 10^3/uL (4.0-10.0)
[2022-06-23 20:07] LABS: INR 1.04; PROTHROMBIN TIME 13.8 SECONDS (12.5-14.5)
[2022-06-23 20:14] LABS: ETHYL ALCOHOL (ETHANOL) < 0.003 % (0.000-0.010)
[2022-06-23 20:16] LABS: ALBUMIN 3.1 G/DL (3.2-5.2); ALKALINE PHOSPHATASE 124 U/L (46-116); ALT/SGPT < 9 U/L (7.0-40); AST/SGOT < 8 U/L (<34); BILIRUBIN,DIRECT 0.1 MG/DL (<0.4); BILIRUBIN,TOTAL 0.4 MG/DL (0.3-1.2); BLOOD UREA NITROGEN 21 MG/DL (9-23); CALCIUM LEVEL 8.9 MG/DL (8.3-10.6); CARBON DIOXIDE LEVEL 26 MMOL/L (20-31); CHLORIDE LEVEL 102 MMOL/L (98-107); CK-MB VALUE MASS < 1.0 NG/ML (<3.6); CREATININE FOR GFR 2.15 MG/DL (0.55-1.30); GLOMERULAR FILTRATION RATE 23.8 (>39); GLUCOSE, FASTING 100 MG/DL (74-106); MAGNESIUM LEVEL 1.9 MG/DL (1.8-2.4); POTASSIUM SERUM 4.3 MMOL/L (3.5-5.1); SODIUM LEVEL 135 MMOL/L (136-145); TOTAL PROTEIN 6.6 G/DL (5.7-8.2)
[2022-06-23 20:20] LABS: CPK CREATINE PHOSPHOKINASE 41 U/L (34-145); MB/CK RELATIVE INDEX 2.43 (< OR =4); THYROID STIMULATING HORMONE 1.381 uIU/ML (0.55-4.78)
[2022-06-23] MEDS ORDERED: cefTRIAXone SOD 1 GM in D5W MINI-BAG PLUS 50 ML IV ONE (20:45)
[2022-06-23 22:29] LABS: CK-MB VALUE MASS < 1.0 NG/ML (<3.6)
[2022-06-23 22:43] LABS: CPK CREATINE PHOSPHOKINASE 47 U/L (34-145); MB/CK RELATIVE INDEX 2.12 (< OR =4)
[2022-06-23] MEDS ORDERED: MAALOX 30 ML SUSP *UDC PO PRN (23:00)
[2022-06-23] MEDS ORDERED: MOM 30ML SUSPENSION UDC PO PRN (23:00)
[2022-06-23 23:05] LABS: RSV AMPLIFICATION NEGATIVE (NEGATIVE)
[2022-06-24] MEDS ORDERED: NS 1,000 ML IV SCH (00:45)
[2022-06-24 01:34] VITALS: BP 139/64
[2022-06-24] MEDS: NYSTATIN 100,000 UNITS/GM TOPICAL PWD 15GM TOP PRN (05:14)
[2022-06-24 06:00] VITALS: BP 132/60
[2022-06-24] MEDS ORDERED: ELIQ2.5T PO (06:18)
[2022-06-24] MEDS ORDERED: ALBU8.5H INH (06:18)
[2022-06-24] MEDS ORDERED: NABU-71 PO (06:18)
[2022-06-24] MEDS ORDERED: ATOR1TAB21 PO (06:18)
[2022-06-24] MEDS ORDERED: AMLO1TAB24 PO (06:18)
[2022-06-24] MEDS ORDERED: FOLI1TAB11 PO (06:18)
[2022-06-24] MEDS ORDERED: FURO20TA2 PO (06:18)
[2022-06-24] MEDS ORDERED: METO25TA4 PO (06:18)
[2022-06-24] MEDS ORDERED: HOME MED LIST COMPLETE! XX SCH (06:20)
[2022-06-24] MEDS ORDERED: amLODIPine 5 MG TAB PO PRN (06:20)
[2022-06-24] MEDS ORDERED: ALBUTEROL 90 MCG/ACT 8GM HFA INHALER INH PRN (06:20)
[2022-06-24 07:00] LABS: BASO # 0.1 10^3/uL (0.0-0.2); BASO % 1.1 % (0.0-1.0); EOS # 0.3 10^3/uL (0.0-0.5); EOS % 3.3 % (0.0-3.0); HEMOGLOBIN 12.2 g/dl (12.0-15.5); LYMPH # 1.6 10^3/uL (1.5-5.0); LYMPH % 17.6 % (24.0-44.0); MEAN CORPUSCULAR HEMOGLOBIN 28.7 pg (27.0-33.0); MEAN CORPUSCULAR VOLUME 87.1 fl (80.0-96.0); MONO # 0.8 10^3/uL (0.0-0.8); MONO % 8.7 % (2.0-8.0); NEUTROPHILS # 6.3 10^3/uL (1.5-8.5); NEUTROPHILS % 68.2 % (36.0-66.0); PLATELET COUNT, AUTOMATED 282 10^3/uL (150-450); RED BLOOD COUNT 4.25 10^6/uL (4.00-5.40); WHITE BLOOD COUNT 9.2 10^3/uL (4.0-10.0)
[2022-06-24] MEDS: ADVAIR HFA 115/21MCG INHALER INH SCH ×2 (07:24→21:11)
[2022-06-24 07:29] LABS: CREATININE FOR GFR 2.09 MG/DL (0.55-1.30); GLOMERULAR FILTRATION RATE 24.6 (>39); MAGNESIUM LEVEL 1.8 MG/DL (1.8-2.4); POTASSIUM SERUM 3.9 MMOL/L (3.5-5.1)
[2022-06-24] MEDS ORDERED: METOPROLOL TART 12.5 MG PER 1/2 TAB PO SCH (09:00)
[2022-06-24 10:00] VITALS: BP 125/54
[2022-06-24] MEDS: APIXABAN 2.5 MG TAB (ELIQUIS) PO SCH ×2 (10:00→21:26)
[2022-06-24] MEDS: FOLIC ACID 1MG TAB PO SCH (10:00)
[2022-06-24] MEDS: METOPROLOL TART 25 MG TABLET PO SCH ×2 (10:01→21:00)
[2022-06-24] MEDS: ATORVASTATIN 20 MG TAB PO SCH (10:01)
[2022-06-24] MEDS: FUROSEMIDE 20 MG TAB PO SCH (10:01)
[2022-06-24] MEDS: ACETAMINOPHEN TAB 650MG DOSE (2X325MG) PO PRN ×2 (10:44→21:27)
[2022-06-24 14:00] VITALS: BP 112/67
[2022-06-24 18:00] VITALS: BP 116/67
[2022-06-24 20:00] VITALS: BP 135/68
[2022-06-24] MEDS: MONTELUKAST 10 MG TAB PO SCH (21:26)
[2022-06-24] MEDS: cefTRIAXone SOD 1 GM in D5W MINI-BAG PLUS 50 ML IV SCH (21:28)
[2022-06-24] MEDS ORDERED: RAMELTEON 8 MG TAB (ROZEREM) PO PRN (23:45)
[2022-06-25 01:14] VITALS: BP 137/61
[2022-06-25 05:30] VITALS: BP 140/65
[2022-06-25 06:36] LABS: BASO # 0.1 10^3/uL (0.0-0.2); EOS # 0.3 10^3/uL (0.0-0.5); EOS % 3.7 % (0.0-3.0); HEMATOCRIT 36.2 % (36.0-47.0); HEMOGLOBIN 11.6 g/dl (12.0-15.5); LYMPH # 1.5 10^3/uL (1.5-5.0); LYMPH % 17.7 % (24.0-44.0); MEAN CORPUSCULAR HEMOGLOBIN 28.2 pg (27.0-33.0); MEAN CORPUSCULAR VOLUME 88.1 fl (80.0-96.0); MONO # 0.8 10^3/uL (0.0-0.8); MONO % 9.5 % (2.0-8.0); NEUTROPHILS # 5.8 10^3/uL (1.5-8.5); NEUTROPHILS % 67.3 % (36.0-66.0); PLATELET COUNT, AUTOMATED 251 10^3/uL (150-450); RED BLOOD COUNT 4.11 10^6/uL (4.00-5.40); WHITE BLOOD COUNT 8.6 10^3/uL (4.0-10.0)
[2022-06-25 06:44] LABS: CALCIUM LEVEL 8.3 MG/DL (8.3-10.6); CREATININE FOR GFR 2.14 MG/DL (0.55-1.30); GLOMERULAR FILTRATION RATE 23.9 (>39); MAGNESIUM LEVEL 1.9 MG/DL (1.8-2.4); POTASSIUM SERUM 3.7 MMOL/L (3.5-5.1)
[2022-06-25] MEDS: ADVAIR HFA 115/21MCG INHALER INH SCH ×2 (07:59→19:40)
[2022-06-25] MEDS: METOPROLOL TART 25 MG TABLET PO SCH ×2 (09:00→21:39)
[2022-06-25] MEDS: ATORVASTATIN 20 MG TAB PO SCH (09:30)
[2022-06-25] MEDS: APIXABAN 2.5 MG TAB (ELIQUIS) PO SCH (09:30)
[2022-06-25] MEDS: FOLIC ACID 1MG TAB PO SCH (09:30)
[2022-06-25] MEDS: FUROSEMIDE 20 MG TAB PO SCH (09:30)
[2022-06-25 10:00] VITALS: BP 115/43
[2022-06-25] MEDS: NYSTATIN 100,000 UNITS/GM TOPICAL PWD 15GM TOP PRN (11:29)
[2022-06-25 14:00] VITALS: BP 139/56
[2022-06-25 21:00] VITALS: BP 135/65
[2022-06-25] MEDS: APIXABAN 5 MG TAB (ELIQUIS) PO SCH (21:38)
[2022-06-25] MEDS: RAMELTEON 8 MG TAB (ROZEREM) PO SCH (21:38)
[2022-06-25] MEDS: cefTRIAXone SOD 1 GM in D5W MINI-BAG PLUS 50 ML IV SCH (21:38)
[2022-06-25] MEDS: MONTELUKAST 10 MG TAB PO SCH (21:39)
[2022-06-26 06:00] VITALS: BP 142/80
[2022-06-26 06:13] LABS: BASO # 0.1 10^3/uL (0.0-0.2); EOS # 0.5 10^3/uL (0.0-0.5); EOS % 5.8 % (0.0-3.0); HEMATOCRIT 33.7 % (36.0-47.0); HEMOGLOBIN 11.1 g/dl (12.0-15.5); LYMPH # 1.4 10^3/uL (1.5-5.0); LYMPH % 17.4 % (24.0-44.0); MEAN CORPUSCULAR HGB CONC 32.9 g/dl (32.0-36.5); MONO # 0.8 10^3/uL (0.0-0.8); MONO % 9.4 % (2.0-8.0); NEUTROPHILS # 5.4 10^3/uL (1.5-8.5); NEUTROPHILS % 65.4 % (36.0-66.0); PLATELET COUNT, AUTOMATED 245 10^3/uL (150-450); RED BLOOD COUNT 3.83 10^6/uL (4.00-5.40); WHITE BLOOD COUNT 8.3 10^3/uL (4.0-10.0)
[2022-06-26 06:34] LABS: CALCIUM LEVEL 8.8 MG/DL (8.3-10.6); CREATININE FOR GFR 2.15 MG/DL (0.55-1.30); GLOMERULAR FILTRATION RATE 23.8 (>39); MAGNESIUM LEVEL 1.9 MG/DL (1.8-2.4); POTASSIUM SERUM 3.7 MMOL/L (3.5-5.1)
[2022-06-26] MEDS: ADVAIR HFA 115/21MCG INHALER INH SCH ×2 (07:42→19:33)
[2022-06-26] MEDS: METOPROLOL TART 25 MG TABLET PO SCH ×2 (08:54→20:38)
[2022-06-26] MEDS: FOLIC ACID 1MG TAB PO SCH (08:55)
[2022-06-26] MEDS: FUROSEMIDE 20 MG TAB PO SCH (08:55)
[2022-06-26] MEDS: ATORVASTATIN 20 MG TAB PO SCH (08:55)
[2022-06-26] MEDS: APIXABAN 5 MG TAB (ELIQUIS) PO SCH ×2 (08:55→20:38)
[2022-06-26 10:00] VITALS: BP 113/59
[2022-06-26 14:00] VITALS: BP 128/98
[2022-06-26 18:00] VITALS: BP 125/97
[2022-06-26] MEDS: ACETAMINOPHEN TAB 650MG DOSE (2X325MG) PO PRN (20:38)
[2022-06-26] MEDS: MONTELUKAST 10 MG TAB PO SCH (20:38)
[2022-06-26] MEDS: RAMELTEON 8 MG TAB (ROZEREM) PO SCH (20:38)
[2022-06-26] MEDS: cefTRIAXone SOD 1 GM in D5W MINI-BAG PLUS 50 ML IV SCH (20:39)
[2022-06-26] MEDS ORDERED: QUEtiapine FUMARATE 25 MG TAB PO ONE (21:20)
[2022-06-26 22:00] VITALS: BP 136/92
[2022-06-26] MEDS ORDERED: HALOPERIDOL 5MG/ML 1ML VIAL IV ONE (22:45)
[2022-06-27 06:45] LABS: BASO # 0.1 10^3/uL (0.0-0.2); EOS # 0.5 10^3/uL (0.0-0.5); EOS % 5.4 % (0.0-3.0); HEMOGLOBIN 12.8 g/dl (12.0-15.5); LYMPH # 1.1 10^3/uL (1.5-5.0); LYMPH % 12.6 % (24.0-44.0); MEAN CORPUSCULAR HEMOGLOBIN 28.3 pg (27.0-33.0); MEAN CORPUSCULAR VOLUME 88.3 fl (80.0-96.0); MONO # 0.7 10^3/uL (0.0-0.8); MONO % 8.2 % (2.0-8.0); NEUTROPHILS # 6.4 10^3/uL (1.5-8.5); NEUTROPHILS % 72.2 % (36.0-66.0); PLATELET COUNT, AUTOMATED 243 10^3/uL (150-450); RED BLOOD COUNT 4.53 10^6/uL (4.00-5.40); WHITE BLOOD COUNT 8.9 10^3/uL (4.0-10.0)
[2022-06-27 07:06] LABS: CALCIUM LEVEL 8.8 MG/DL (8.3-10.6); CREATININE FOR GFR 2.11 MG/DL (0.55-1.30); GLOMERULAR FILTRATION RATE 24.3 (>39); MAGNESIUM LEVEL 1.8 MG/DL (1.8-2.4); POTASSIUM SERUM 3.6 MMOL/L (3.5-5.1)
[2022-06-27] MEDS: ADVAIR HFA 115/21MCG INHALER INH SCH ×2 (07:33→19:21)
[2022-06-27 10:00] VITALS: BP 162/78
[2022-06-27] MEDS: FUROSEMIDE 20 MG TAB PO SCH (11:13)
[2022-06-27] MEDS: ATORVASTATIN 20 MG TAB PO SCH (11:13)
[2022-06-27] MEDS: METOPROLOL TART 25 MG TABLET PO SCH ×2 (11:14→21:23)
[2022-06-27] MEDS: FOLIC ACID 1MG TAB PO SCH (11:14)
[2022-06-27] MEDS: APIXABAN 5 MG TAB (ELIQUIS) PO SCH ×2 (11:15→21:22)
[2022-06-27 14:00] VITALS: BP 150/79
[2022-06-27 18:00] VITALS: BP 136/70
[2022-06-27 20:00] VITALS: BP 139/76
[2022-06-27] MEDS: MONTELUKAST 10 MG TAB PO SCH (21:22)
[2022-06-27] MEDS: RAMELTEON 8 MG TAB (ROZEREM) PO SCH (21:23)
[2022-06-27] MEDS: cefTRIAXone SOD 1 GM in D5W MINI-BAG PLUS 50 ML IV SCH (21:23)
[2022-06-28 06:29] LABS: BASO # 0.1 10^3/uL (0.0-0.2); BASO % 0.8 % (0.0-1.0); EOS # 0.5 10^3/uL (0.0-0.5); EOS % 5.4 % (0.0-3.0); HEMATOCRIT 37.7 % (36.0-47.0); HEMOGLOBIN 12.3 g/dl (12.0-15.5); LYMPH # 1.1 10^3/uL (1.5-5.0); LYMPH % 11.6 % (24.0-44.0); MEAN CORPUSCULAR HEMOGLOBIN 28.2 pg (27.0-33.0); MEAN CORPUSCULAR HGB CONC 32.6 g/dl (32.0-36.5); MEAN CORPUSCULAR VOLUME 86.5 fl (80.0-96.0); MONO # 0.7 10^3/uL (0.0-0.8); MONO % 7.8 % (2.0-8.0); NEUTROPHILS % 73.7 % (36.0-66.0); PLATELET COUNT, AUTOMATED 257 10^3/uL (150-450); RED BLOOD COUNT 4.36 10^6/uL (4.00-5.40); WHITE BLOOD COUNT 9.5 10^3/uL (4.0-10.0)
[2022-06-28 06:51] LABS: CALCIUM LEVEL 9.1 MG/DL (8.3-10.6); CREATININE FOR GFR 2.09 MG/DL (0.55-1.30); GLOMERULAR FILTRATION RATE 24.6 (>39); MAGNESIUM LEVEL 1.8 MG/DL (1.8-2.4); POTASSIUM SERUM 4.1 MMOL/L (3.5-5.1)
[2022-06-28] MEDS: ADVAIR HFA 115/21MCG INHALER INH SCH ×2 (08:00→19:43)
[2022-06-28] MEDS ORDERED: MAG SULF 1GM/100ML (MAG RUN) 1 GM in IV 1 EA IV ONE (09:00)
[2022-06-28] MEDS: ATORVASTATIN 20 MG TAB PO SCH (09:40)
[2022-06-28] MEDS: APIXABAN 5 MG TAB (ELIQUIS) PO SCH ×2 (09:40→21:11)
[2022-06-28] MEDS: FOLIC ACID 1MG TAB PO SCH (09:40)
[2022-06-28] MEDS: FUROSEMIDE 20 MG TAB PO SCH (09:40)
[2022-06-28] MEDS: METOPROLOL TART 25 MG TABLET PO SCH ×2 (09:41→21:00)
[2022-06-28 10:00] VITALS: BP 99/62
[2022-06-28 14:00] VITALS: BP 108/66
[2022-06-28] MEDS: RAMELTEON 8 MG TAB (ROZEREM) PO SCH (21:10)
[2022-06-28] MEDS: MONTELUKAST 10 MG TAB PO SCH (21:11)
[2022-06-28] MEDS: CEFDINIR 300 MG CAP (OMNICEF) PO SCH (21:11)
[2022-06-29 05:56] VITALS: BP 123/99
[2022-06-29 06:01] LABS: BASO # 0.1 10^3/uL (0.0-0.2); BASO % 0.8 % (0.0-1.0); EOS # 0.4 10^3/uL (0.0-0.5); HEMATOCRIT 39.3 % (36.0-47.0); HEMOGLOBIN 12.8 g/dl (12.0-15.5); LYMPH # 0.9 10^3/uL (1.5-5.0); LYMPH % 7.9 % (24.0-44.0); MEAN CORPUSCULAR HEMOGLOBIN 28.4 pg (27.0-33.0); MEAN CORPUSCULAR HGB CONC 32.6 g/dl (32.0-36.5); MEAN CORPUSCULAR VOLUME 87.3 fl (80.0-96.0); MONO # 0.7 10^3/uL (0.0-0.8); MONO % 5.6 % (2.0-8.0); NEUTROPHILS # 9.7 10^3/uL (1.5-8.5); NEUTROPHILS % 81.9 % (36.0-66.0); PLATELET COUNT, AUTOMATED 254 10^3/uL (150-450); WHITE BLOOD COUNT 11.9 10^3/uL (4.0-10.0)
[2022-06-29 06:30] LABS: CALCIUM LEVEL 8.9 MG/DL (8.3-10.6); CREATININE FOR GFR 2.06 MG/DL (0.55-1.30)
[2022-06-29] MEDS: ADVAIR HFA 115/21MCG INHALER INH SCH ×2 (07:33→19:40)
[2022-06-29] MEDS: FOLIC ACID 1MG TAB PO SCH (09:32)
[2022-06-29] MEDS: ATORVASTATIN 20 MG TAB PO SCH (09:33)
[2022-06-29] MEDS: APIXABAN 5 MG TAB (ELIQUIS) PO SCH ×2 (09:33→21:08)
[2022-06-29] MEDS: FUROSEMIDE 20 MG TAB PO SCH (09:33)
[2022-06-29] MEDS: CEFDINIR 300 MG CAP (OMNICEF) PO SCH ×2 (09:33→21:08)
[2022-06-29] MEDS: METOPROLOL TART 25 MG TABLET PO SCH ×2 (09:33→20:21)
[2022-06-29] MEDS: MONTELUKAST 10 MG TAB PO SCH (21:08)
[2022-06-29] MEDS: RAMELTEON 8 MG TAB (ROZEREM) PO SCH (21:08)
[2022-06-29] MEDS: ACETAMINOPHEN TAB 650MG DOSE (2X325MG) PO PRN (22:58)
[2022-06-30 06:00] VITALS: BP 127/63
[2022-06-30 06:13] LABS: BASO # 0.1 10^3/uL (0.0-0.2); BASO % 0.7 % (0.0-1.0); EOS # 0.4 10^3/uL (0.0-0.5); EOS % 3.5 % (0.0-3.0); HEMOGLOBIN 11.8 g/dl (12.0-15.5); LYMPH # 0.9 10^3/uL (1.5-5.0); LYMPH % 8.4 % (24.0-44.0); MEAN CORPUSCULAR HEMOGLOBIN 28.4 pg (27.0-33.0); MEAN CORPUSCULAR HGB CONC 31.9 g/dl (32.0-36.5); MEAN CORPUSCULAR VOLUME 88.9 fl (80.0-96.0); MONO # 0.9 10^3/uL (0.0-0.8); NEUTROPHILS # 8.4 10^3/uL (1.5-8.5); NEUTROPHILS % 78.7 % (36.0-66.0); PLATELET COUNT, AUTOMATED 251 10^3/uL (150-450); RED BLOOD COUNT 4.16 10^6/uL (4.00-5.40); WHITE BLOOD COUNT 10.7 10^3/uL (4.0-10.0)
[2022-06-30] MEDS: ADVAIR HFA 115/21MCG INHALER INH SCH ×2 (07:40→20:09)
[2022-06-30] MEDS: METOPROLOL TART 25 MG TABLET PO SCH ×2 (09:00→20:25)
[2022-06-30] MEDS: ACETAMINOPHEN TAB 650MG DOSE (2X325MG) PO PRN (09:15)
[2022-06-30] MEDS: ATORVASTATIN 20 MG TAB PO SCH (09:15)
[2022-06-30] MEDS: APIXABAN 5 MG TAB (ELIQUIS) PO SCH ×2 (09:15→20:23)
[2022-06-30] MEDS: FOLIC ACID 1MG TAB PO SCH (09:15)
[2022-06-30] MEDS: FUROSEMIDE 20 MG TAB PO SCH (09:15)
[2022-06-30] MEDS: CEFDINIR 300 MG CAP (OMNICEF) PO SCH ×2 (09:15→20:23)
[2022-06-30] MEDS: NYSTATIN 100,000 UNITS/GM TOPICAL PWD 15GM TOP PRN (09:16)
[2022-06-30] MEDS: RAMELTEON 8 MG TAB (ROZEREM) PO SCH (20:23)
[2022-06-30] MEDS: MONTELUKAST 10 MG TAB PO SCH (20:23)
[2022-07-01 06:00] VITALS: BP 114/64
[2022-07-01] MEDS: ADVAIR HFA 115/21MCG INHALER INH SCH ×2 (07:38→19:56)
[2022-07-01 09:56] VITALS: BP 114/56
[2022-07-01] MEDS: METOPROLOL TART 25 MG TABLET PO SCH (09:56)
[2022-07-01] MEDS: APIXABAN 5 MG TAB (ELIQUIS) PO SCH (09:56)
[2022-07-01] MEDS: ATORVASTATIN 20 MG TAB PO SCH (09:56)
[2022-07-01] MEDS: FOLIC ACID 1MG TAB PO SCH (09:56)
[2022-07-01] MEDS: FUROSEMIDE 20 MG TAB PO SCH (09:57)
[2022-07-01] MEDS: CEFDINIR 300 MG CAP (OMNICEF) PO SCH ×2 (09:59→22:30)
[2022-07-01] MEDS ORDERED: diphenhydrAMINE 50MG/ML VIAL IV ONE (20:50)
[2022-07-01 20:56] VITALS: BP 119/58
[2022-07-01] MEDS ORDERED: TEMAZEPAM 7.5 MG CAP PO ONE (21:00)
[2022-07-01] MEDS: RIVAROXABAN 15MG TAB (XARELTO) PO SCH (22:30)
[2022-07-01] MEDS: MONTELUKAST 10 MG TAB PO SCH (22:30)
[2022-07-01 22:40] VITALS: BP 147/77
[2022-07-01 23:30] VITALS: BP 130/73
[2022-07-01] MEDS: NS 1,000 ML IV SCH (23:31)
[2022-07-01 23:45] VITALS: BP 121/58
[2022-07-02] VITALS (92 sets, daily range): BP systolic 92–206; BP diastolic 45–116
[2022-07-02] MEDS ORDERED: PHENYLEPHRINE HCL INJ 50 MG in D5W 495 ML IV SCH ×2
[2022-07-02 00:13] LABS: CHOLESTEROL RISK RATIO 2.52 (<5); HDL CHOLESTEROL 49.2 MG/DL (>40); LDL CHOLESTEROL 52.8 MG/DL (<100); NON-HDL-C 74.8 MG/DL
[2022-07-02 00:32] LABS: HEMOGLOBIN A1c 5.5 % (4.0-6.0)
[2022-07-02] MEDS: NS 1,000 ML IV SCH ×3 (04:40→18:02)
[2022-07-02 05:30] LABS: BASO # 0.1 10^3/uL (0.0-0.2); BASO % 1.1 % (0.0-1.0); EOS # 0.7 10^3/uL (0.0-0.5); EOS % 6.2 % (0.0-3.0); HEMATOCRIT 36.1 % (36.0-47.0); HEMOGLOBIN 11.9 g/dl (12.0-15.5); LYMPH # 1.3 10^3/uL (1.5-5.0); LYMPH % 11.3 % (24.0-44.0); MEAN CORPUSCULAR HEMOGLOBIN 28.6 pg (27.0-33.0); MEAN CORPUSCULAR VOLUME 86.8 fl (80.0-96.0); MONO # 1.1 10^3/uL (0.0-0.8); MONO % 9.5 % (2.0-8.0); NEUTROPHILS # 8.3 10^3/uL (1.5-8.5); NEUTROPHILS % 70.5 % (36.0-66.0); PLATELET COUNT, AUTOMATED 342 10^3/uL (150-450); RED BLOOD COUNT 4.16 10^6/uL (4.00-5.40); WHITE BLOOD COUNT 11.7 10^3/uL (4.0-10.0)
[2022-07-02 05:51] LABS: CALCIUM LEVEL 8.7 MG/DL (8.3-10.6); CREATININE FOR GFR 1.88 MG/DL (0.55-1.30); GLOMERULAR FILTRATION RATE 27.8 (>39); MAGNESIUM LEVEL 1.8 MG/DL (1.8-2.4); POTASSIUM SERUM 4.1 MMOL/L (3.5-5.1)
[2022-07-02] MEDS: ADVAIR HFA 115/21MCG INHALER INH SCH ×2 (08:04→19:30)
[2022-07-02] MEDS: FOLIC ACID 1MG TAB PO SCH (13:28)
[2022-07-02] MEDS: CEFDINIR 300 MG CAP (OMNICEF) PO SCH ×2 (13:28→21:31)
[2022-07-02] MEDS: ATORVASTATIN 20 MG TAB PO SCH (13:28)
[2022-07-02] MEDS: PHENYLEPHRINE HCL INJ 50 MG in D5W 495 ML IV SCH (14:41)
[2022-07-02] MEDS: RIVAROXABAN 15MG TAB (XARELTO) PO SCH (18:02)
[2022-07-02] MEDS: ACETAMINOPHEN TAB 650MG DOSE (2X325MG) PO PRN (19:11)
[2022-07-02] MEDS: METOPROLOL TART 25 MG TABLET PO SCH (21:00)
[2022-07-02] MEDS: MONTELUKAST 10 MG TAB PO SCH (21:31)
[2022-07-03] VITALS (26 sets, daily range): BP systolic 111–194; BP diastolic 53–100
[2022-07-03] MEDS ORDERED: HALOPERIDOL 5MG/ML 1ML VIAL IV ONE (02:00)
[2022-07-03] MEDS: PHENYLEPHRINE HCL INJ 50 MG in D5W 495 ML IV SCH (02:19)
[2022-07-03] MEDS: ACETAMINOPHEN TAB 650MG DOSE (2X325MG) PO PRN ×2 (02:34→20:12)
[2022-07-03] MEDS ORDERED: HALOPERIDOL 5MG/ML 1ML VIAL IM ONE (03:00)
[2022-07-03] MEDS: NS 1,000 ML IV SCH (04:43)
[2022-07-03 06:17] LABS: BASO # 0.1 10^3/uL (0.0-0.2); BASO % 0.9 % (0.0-1.0); EOS # 0.6 10^3/uL (0.0-0.5); EOS % 6.9 % (0.0-3.0); HEMATOCRIT 32.5 % (36.0-47.0); HEMOGLOBIN 10.6 g/dl (12.0-15.5); LYMPH # 1.3 10^3/uL (1.5-5.0); LYMPH % 14.4 % (24.0-44.0); MEAN CORPUSCULAR HEMOGLOBIN 28.6 pg (27.0-33.0); MEAN CORPUSCULAR HGB CONC 32.6 g/dl (32.0-36.5); MEAN CORPUSCULAR VOLUME 87.6 fl (80.0-96.0); MONO # 0.8 10^3/uL (0.0-0.8); MONO % 9.2 % (2.0-8.0); NEUTROPHILS # 5.9 10^3/uL (1.5-8.5); NEUTROPHILS % 67.6 % (36.0-66.0); PLATELET COUNT, AUTOMATED 299 10^3/uL (150-450); RED BLOOD COUNT 3.71 10^6/uL (4.00-5.40); WHITE BLOOD COUNT 8.7 10^3/uL (4.0-10.0)
[2022-07-03 06:43] LABS: ALBUMIN 2.4 G/DL (3.2-5.2); BILIRUBIN,TOTAL 0.7 MG/DL (0.3-1.2); CALCIUM LEVEL 8.4 MG/DL (8.3-10.6); CREATININE FOR GFR 1.64 MG/DL (0.55-1.30); GLOMERULAR FILTRATION RATE 32.5 (>39); MAGNESIUM LEVEL 1.7 MG/DL (1.8-2.4); POTASSIUM SERUM 4.2 MMOL/L (3.5-5.1); TOTAL PROTEIN 5.5 G/DL (5.7-8.2)
[2022-07-03] MEDS ORDERED: MAGNESIUM OXIDE 400MG TAB (MAG-OX) PO ONE ×2 (08:00→09:35)
[2022-07-03] MEDS: METOPROLOL TART 25 MG TABLET PO SCH ×2 (09:00→20:12)
[2022-07-03] MEDS: CEFDINIR 300 MG CAP (OMNICEF) PO SCH (10:17)
[2022-07-03] MEDS: FOLIC ACID 1MG TAB PO SCH (10:18)
[2022-07-03] MEDS: ATORVASTATIN 20 MG TAB PO SCH (10:18)
[2022-07-03] MEDS: FUROSEMIDE 20 MG TAB PO SCH (10:18)
[2022-07-03] MEDS: ADVAIR HFA 115/21MCG INHALER INH SCH ×2 (11:30→19:06)
[2022-07-03] MEDS: ASPIRIN 81MG ENTERIC TABLET PO SCH (11:40)
[2022-07-03] MEDS ORDERED: traMADol 50 MG TAB PO ONE (13:45)
[2022-07-03] MEDS ORDERED: PILL CUTTER 1 EACH XX PRN (14:00)
[2022-07-03] MEDS: NYSTATIN 100,000 UNITS/GM TOPICAL PWD 15GM TOP PRN (17:52)
[2022-07-03] MEDS: DONEPEZIL 5 MG TAB PO SCH (18:41)
[2022-07-03] MEDS: RIVAROXABAN 15MG TAB (XARELTO) PO SCH (18:41)
[2022-07-03] MEDS: MONTELUKAST 10 MG TAB PO SCH (20:12)
[2022-07-03] MEDS: QUEtiapine FUMARATE 25 MG TAB PO SCH (20:13)
[2022-07-04] MEDS: ACETAMINOPHEN TAB 650MG DOSE (2X325MG) PO PRN (03:57)
[2022-07-04 05:45] VITALS: BP 136/63
[2022-07-04] MEDS: ADVAIR HFA 115/21MCG INHALER INH SCH ×2 (07:32→19:11)
[2022-07-04 08:00] VITALS: BP 104/54
[2022-07-04] MEDS: METOPROLOL TART 25 MG TABLET PO SCH ×2 (09:00→21:37)
[2022-07-04] MEDS: ATORVASTATIN 20 MG TAB PO SCH (10:31)
[2022-07-04] MEDS: ASPIRIN 81MG ENTERIC TABLET PO SCH (10:31)
[2022-07-04] MEDS: FOLIC ACID 1MG TAB PO SCH (10:31)
[2022-07-04] MEDS: FUROSEMIDE 20 MG TAB PO SCH (10:32)
[2022-07-04] MEDS: DONEPEZIL 5 MG TAB PO SCH (10:32)
[2022-07-04] MEDS ORDERED: MAG SULF 1GM/100ML (MAG RUN) 1 GM in IV 1 EA IV ONE (11:00)
[2022-07-04 12:05] LABS: ABG BASE EXCESS -0.8 (-2.0-2.0); ABG HCO3 22.7 MMOL/L (22.0-26.0); ABG O2 SATURATION 96.1 % (95.0-99.0); ABG PARTIAL PRESSURE CO2 33.7 mmHg (35.0-45.0); ABG PARTIAL PRESSURE O2 80.6 mmHg (75.0-100.0); ABG STANDARD HCO3 23.8 MMOL/L. (22.0-26.0); ABG TOTAL CO2 23.7 MMOL/L (23.0-31.0); ABG pH (ARTERIAL) 7.446 UNITS (7.350-7.450)
[2022-07-04 16:00] VITALS: BP 139/63
[2022-07-04] MEDS: RIVAROXABAN 15MG TAB (XARELTO) PO SCH (18:46)
[2022-07-04 21:17] VITALS: BP 134/63
[2022-07-04] MEDS: MONTELUKAST 10 MG TAB PO SCH (21:37)
[2022-07-04] MEDS: QUEtiapine FUMARATE 25 MG TAB PO SCH (21:37)
[2022-07-05 04:20] VITALS: BP 117/51
[2022-07-05] MEDS: ADVAIR HFA 115/21MCG INHALER INH SCH ×2 (07:41→20:00)
[2022-07-05 08:00] VITALS: BP 142/81
[2022-07-05 08:25] LABS: BASO # 0.1 10^3/uL (0.0-0.2); BASO % 0.9 % (0.0-1.0); EOS # 0.6 10^3/uL (0.0-0.5); EOS % 7.3 % (0.0-3.0); HEMOGLOBIN 11.2 g/dl (12.0-15.5); LYMPH # 1.1 10^3/uL (1.5-5.0); LYMPH % 13.7 % (24.0-44.0); MEAN CORPUSCULAR HEMOGLOBIN 28.1 pg (27.0-33.0); MEAN CORPUSCULAR VOLUME 87.9 fl (80.0-96.0); MONO # 0.7 10^3/uL (0.0-0.8); MONO % 8.9 % (2.0-8.0); NEUTROPHILS # 5.6 10^3/uL (1.5-8.5); NEUTROPHILS % 68.6 % (36.0-66.0); PLATELET COUNT, AUTOMATED 306 10^3/uL (150-450); RED BLOOD COUNT 3.98 10^6/uL (4.00-5.40); WHITE BLOOD COUNT 8.2 10^3/uL (4.0-10.0)
[2022-07-05 08:50] LABS: CREATININE FOR GFR 1.85 MG/DL (0.55-1.30); GLOMERULAR FILTRATION RATE 28.3 (>39); POTASSIUM SERUM 4.6 MMOL/L (3.5-5.1)
[2022-07-05] MEDS: ASPIRIN 81MG ENTERIC TABLET PO SCH (09:30)
[2022-07-05] MEDS: ATORVASTATIN 20 MG TAB PO SCH (09:30)
[2022-07-05] MEDS: DONEPEZIL 5 MG TAB PO SCH (09:31)
[2022-07-05] MEDS: FOLIC ACID 1MG TAB PO SCH (09:31)
[2022-07-05] MEDS: FUROSEMIDE 20 MG TAB PO SCH (09:31)
[2022-07-05] MEDS: METOPROLOL TART 25 MG TABLET PO SCH ×2 (09:33→20:55)
[2022-07-05 11:47] LABS: MAGNESIUM LEVEL 2.2 MG/DL (1.8-2.4)
[2022-07-05 16:00] VITALS: BP 138/68
[2022-07-05] MEDS: RIVAROXABAN 15MG TAB (XARELTO) PO SCH (19:19)
[2022-07-05 20:24] VITALS: BP 143/63
[2022-07-05] MEDS: MONTELUKAST 10 MG TAB PO SCH (20:55)
[2022-07-05] MEDS: QUEtiapine FUMARATE 25 MG TAB PO SCH (20:55)
[2022-07-06 05:35] LABS: BASO # 0.1 10^3/uL (0.0-0.2); BASO % 1.1 % (0.0-1.0); EOS # 0.6 10^3/uL (0.0-0.5); EOS % 6.6 % (0.0-3.0); HEMATOCRIT 37.1 % (36.0-47.0); HEMOGLOBIN 11.8 g/dl (12.0-15.5); LYMPH # 1.4 10^3/uL (1.5-5.0); LYMPH % 16.3 % (24.0-44.0); MEAN CORPUSCULAR HEMOGLOBIN 28.2 pg (27.0-33.0); MEAN CORPUSCULAR HGB CONC 31.8 g/dl (32.0-36.5); MEAN CORPUSCULAR VOLUME 88.5 fl (80.0-96.0); MONO # 0.8 10^3/uL (0.0-0.8); MONO % 9.4 % (2.0-8.0); NEUTROPHILS # 5.5 10^3/uL (1.5-8.5); NEUTROPHILS % 65.8 % (36.0-66.0); PLATELET COUNT, AUTOMATED 334 10^3/uL (150-450); RED BLOOD COUNT 4.19 10^6/uL (4.00-5.40); WHITE BLOOD COUNT 8.4 10^3/uL (4.0-10.0)
[2022-07-06 05:56] LABS: CALCIUM LEVEL 9.6 MG/DL (8.3-10.6); CREATININE FOR GFR 1.93 MG/DL (0.55-1.30); GLOMERULAR FILTRATION RATE 26.9 (>39); POTASSIUM SERUM 4.7 MMOL/L (3.5-5.1)
[2022-07-06] MEDS: ADVAIR HFA 115/21MCG INHALER INH SCH ×2 (07:11→20:38)
[2022-07-06 07:30] VITALS: BP 162/74
[2022-07-06] MEDS: ATORVASTATIN 20 MG TAB PO SCH (08:39)
[2022-07-06] MEDS: FOLIC ACID 1MG TAB PO SCH (08:39)
[2022-07-06] MEDS: DONEPEZIL 5 MG TAB PO SCH (08:39)
[2022-07-06] MEDS: FUROSEMIDE 20 MG TAB PO SCH (08:39)
[2022-07-06] MEDS: ASPIRIN 81MG ENTERIC TABLET PO SCH (08:40)
[2022-07-06] MEDS: METOPROLOL TART 25 MG TABLET PO SCH ×2 (08:40→21:01)
[2022-07-06] MEDS: RIVAROXABAN 15MG TAB (XARELTO) PO SCH (18:46)
[2022-07-06 20:07] VITALS: BP 156/74
[2022-07-06] MEDS: QUEtiapine FUMARATE 25 MG TAB PO SCH (21:01)
[2022-07-06] MEDS: MONTELUKAST 10 MG TAB PO SCH (21:01)
[2022-07-06 23:55] VITALS: BP 133/64
[2022-07-07 05:00] VITALS: BP 126/70
[2022-07-07 05:23] LABS: BASO # 0.1 10^3/uL (0.0-0.2); BASO % 1.2 % (0.0-1.0); EOS # 0.5 10^3/uL (0.0-0.5); EOS % 4.9 % (0.0-3.0); HEMATOCRIT 35.4 % (36.0-47.0); HEMOGLOBIN 11.1 g/dl (12.0-15.5); LYMPH # 1.5 10^3/uL (1.5-5.0); LYMPH % 16.6 % (24.0-44.0); MEAN CORPUSCULAR HEMOGLOBIN 28.3 pg (27.0-33.0); MEAN CORPUSCULAR HGB CONC 31.4 g/dl (32.0-36.5); MEAN CORPUSCULAR VOLUME 90.3 fl (80.0-96.0); MONO # 0.8 10^3/uL (0.0-0.8); MONO % 8.6 % (2.0-8.0); NEUTROPHILS # 6.3 10^3/uL (1.5-8.5); NEUTROPHILS % 67.6 % (36.0-66.0); PLATELET COUNT, AUTOMATED 344 10^3/uL (150-450); RED BLOOD COUNT 3.92 10^6/uL (4.00-5.40); WHITE BLOOD COUNT 9.3 10^3/uL (4.0-10.0)
[2022-07-07 05:46] LABS: CALCIUM LEVEL 9.1 MG/DL (8.3-10.6); CREATININE FOR GFR 2.16 MG/DL (0.55-1.30); GLOMERULAR FILTRATION RATE 23.7 (>39); POTASSIUM SERUM 4.2 MMOL/L (3.5-5.1)
[2022-07-07] MEDS: ADVAIR HFA 115/21MCG INHALER INH SCH ×2 (06:22→19:54)
[2022-07-07] MEDS: FUROSEMIDE 20 MG TAB PO SCH (08:30)
[2022-07-07] MEDS: DONEPEZIL 5 MG TAB PO SCH (08:30)
[2022-07-07] MEDS: ATORVASTATIN 20 MG TAB PO SCH (08:30)
[2022-07-07] MEDS: METOPROLOL TART 25 MG TABLET PO SCH ×2 (08:30→21:02)
[2022-07-07] MEDS: ASPIRIN 81MG ENTERIC TABLET PO SCH (08:30)
[2022-07-07] MEDS: FOLIC ACID 1MG TAB PO SCH (08:30)
[2022-07-07] MEDS: RIVAROXABAN 15MG TAB (XARELTO) PO SCH (18:11)
[2022-07-07 20:57] VITALS: BP 114/56
[2022-07-07] MEDS: MONTELUKAST 10 MG TAB PO SCH (21:02)
[2022-07-07] MEDS: QUEtiapine FUMARATE 25 MG TAB PO SCH (21:02)
[2022-07-08 06:33] LABS: BASO # 0.1 10^3/uL (0.0-0.2); BASO % 1.1 % (0.0-1.0); EOS # 0.5 10^3/uL (0.0-0.5); EOS % 5.5 % (0.0-3.0); HEMATOCRIT 35.2 % (36.0-47.0); HEMOGLOBIN 11.2 g/dl (12.0-15.5); LYMPH # 1.5 10^3/uL (1.5-5.0); LYMPH % 15.8 % (24.0-44.0); MEAN CORPUSCULAR HEMOGLOBIN 28.5 pg (27.0-33.0); MEAN CORPUSCULAR HGB CONC 31.8 g/dl (32.0-36.5); MEAN CORPUSCULAR VOLUME 89.6 fl (80.0-96.0); MONO # 0.9 10^3/uL (0.0-0.8); MONO % 9.8 % (2.0-8.0); NEUTROPHILS # 6.2 10^3/uL (1.5-8.5); NEUTROPHILS % 66.4 % (36.0-66.0); PLATELET COUNT, AUTOMATED 353 10^3/uL (150-450); RED BLOOD COUNT 3.93 10^6/uL (4.00-5.40); WHITE BLOOD COUNT 9.4 10^3/uL (4.0-10.0)
[2022-07-08 06:49] LABS: CALCIUM LEVEL 9.1 MG/DL (8.3-10.6); CREATININE FOR GFR 2.34 MG/DL (0.55-1.30); GLOMERULAR FILTRATION RATE 21.6 (>39); POTASSIUM SERUM 4.6 MMOL/L (3.5-5.1)
[2022-07-08] MEDS: ADVAIR HFA 115/21MCG INHALER INH SCH ×2 (07:18→18:59)
[2022-07-08 07:27] VITALS: BP_SYST 138; BP_SYST 140; BP_DIAS 61; BP_DIAS 67
[2022-07-08] MEDS: METOPROLOL TART 25 MG TABLET PO SCH ×2 (09:00→20:22)
[2022-07-08] MEDS: FUROSEMIDE 20 MG TAB PO SCH (11:07)
[2022-07-08] MEDS: DONEPEZIL 5 MG TAB PO SCH (11:07)
[2022-07-08] MEDS: FOLIC ACID 1MG TAB PO SCH (11:07)
[2022-07-08] MEDS: ATORVASTATIN 20 MG TAB PO SCH (11:07)
[2022-07-08] MEDS: ASPIRIN 81MG ENTERIC TABLET PO SCH (11:07)
[2022-07-08] MEDS: RIVAROXABAN 15MG TAB (XARELTO) PO SCH (19:07)
[2022-07-08] MEDS: MONTELUKAST 10 MG TAB PO SCH (20:21)
[2022-07-08] MEDS: QUEtiapine FUMARATE 25 MG TAB PO SCH (20:21)
[2022-07-08 20:38] VITALS: BP 142/62
[2022-07-09] VITALS: BP 115/60
[2022-07-09 03:18] VITALS: BP 153/70
[2022-07-09 06:39] LABS: BASO # 0.1 10^3/uL (0.0-0.2); BASO % 1.1 % (0.0-1.0); EOS # 0.5 10^3/uL (0.0-0.5); EOS % 5.7 % (0.0-3.0); HEMATOCRIT 33.3 % (36.0-47.0); HEMOGLOBIN 10.8 g/dl (12.0-15.5); LYMPH # 1.5 10^3/uL (1.5-5.0); LYMPH % 15.7 % (24.0-44.0); MEAN CORPUSCULAR HEMOGLOBIN 28.1 pg (27.0-33.0); MEAN CORPUSCULAR HGB CONC 32.4 g/dl (32.0-36.5); MEAN CORPUSCULAR VOLUME 86.7 fl (80.0-96.0); MONO # 0.9 10^3/uL (0.0-0.8); MONO % 9.9 % (2.0-8.0); NEUTROPHILS # 6.2 10^3/uL (1.5-8.5); NEUTROPHILS % 66.5 % (36.0-66.0); PLATELET COUNT, AUTOMATED 348 10^3/uL (150-450); RED BLOOD COUNT 3.84 10^6/uL (4.00-5.40); WHITE BLOOD COUNT 9.3 10^3/uL (4.0-10.0)
[2022-07-09 07:13] LABS: CALCIUM LEVEL 9.6 MG/DL (8.3-10.6); CREATININE FOR GFR 2.3 MG/DL (0.55-1.30); POTASSIUM SERUM 4.2 MMOL/L (3.5-5.1)
[2022-07-09] MEDS: ADVAIR HFA 115/21MCG INHALER INH SCH ×2 (07:41→20:00)
[2022-07-09 08:00] VITALS: BP 143/66
[2022-07-09] MEDS: DONEPEZIL 5 MG TAB PO SCH (08:38)
[2022-07-09] MEDS: METOPROLOL TART 25 MG TABLET PO SCH ×2 (08:38→20:51)
[2022-07-09] MEDS: FUROSEMIDE 20 MG TAB PO SCH (08:38)
[2022-07-09] MEDS: FOLIC ACID 1MG TAB PO SCH (08:38)
[2022-07-09] MEDS: ASPIRIN 81MG ENTERIC TABLET PO SCH (08:38)
[2022-07-09] MEDS: ATORVASTATIN 20 MG TAB PO SCH (08:38)
[2022-07-09 12:20] VITALS: BP 102/70
[2022-07-09] MEDS: RIVAROXABAN 15MG TAB (XARELTO) PO SCH (18:40)
[2022-07-09 20:30] VITALS: BP 127/74
[2022-07-09] MEDS: QUEtiapine FUMARATE 25 MG TAB PO SCH (20:50)
[2022-07-09] MEDS: MONTELUKAST 10 MG TAB PO SCH (20:51)
[2022-07-10 06:14] VITALS: BP 123/60
[2022-07-10] MEDS: ADVAIR HFA 115/21MCG INHALER INH SCH ×2 (07:50→19:41)
[2022-07-10] MEDS: FUROSEMIDE 10MG PER 1/2 TABLET PO SCH (10:37)
[2022-07-10] MEDS: METOPROLOL TART 25 MG TABLET PO SCH ×2 (10:37→20:57)
[2022-07-10] MEDS: ATORVASTATIN 20 MG TAB PO SCH (10:37)
[2022-07-10] MEDS: DONEPEZIL 5 MG TAB PO SCH (10:37)
[2022-07-10] MEDS: ASPIRIN 81MG ENTERIC TABLET PO SCH (10:38)
[2022-07-10] MEDS: FOLIC ACID 1MG TAB PO SCH (10:38)
[2022-07-10] MEDS: RIVAROXABAN 15MG TAB (XARELTO) PO SCH (18:00)
[2022-07-10] MEDS: QUEtiapine FUMARATE 25 MG TAB PO SCH (20:57)
[2022-07-10] MEDS: MONTELUKAST 10 MG TAB PO SCH (20:57)
[2022-07-11 06:26] VITALS: BP 143/77
[2022-07-11] MEDS: ADVAIR HFA 115/21MCG INHALER INH SCH ×2 (07:10→18:46)
[2022-07-11] MEDS: ATORVASTATIN 20 MG TAB PO SCH (08:55)
[2022-07-11] MEDS: ASPIRIN 81MG ENTERIC TABLET PO SCH (08:55)
[2022-07-11] MEDS: FOLIC ACID 1MG TAB PO SCH (08:55)
[2022-07-11] MEDS: DONEPEZIL 5 MG TAB PO SCH (08:55)
[2022-07-11] MEDS: METOPROLOL TART 25 MG TABLET PO SCH ×2 (08:56→20:45)
[2022-07-11] MEDS: FUROSEMIDE 10MG PER 1/2 TABLET PO SCH (08:56)
[2022-07-11] MEDS: RIVAROXABAN 15MG TAB (XARELTO) PO SCH (17:11)
[2022-07-11] MEDS: MONTELUKAST 10 MG TAB PO SCH (20:43)
[2022-07-11] MEDS: QUEtiapine FUMARATE 25 MG TAB PO SCH (20:43)
[2022-07-12 01:12] VITALS: BP 146/74
[2022-07-12] MEDS: ADVAIR HFA 115/21MCG INHALER INH SCH ×2 (07:24→20:26)
[2022-07-12] MEDS: METOPROLOL TART 25 MG TABLET PO SCH ×2 (09:00→21:09)
[2022-07-12] MEDS: ATORVASTATIN 20 MG TAB PO SCH (09:48)
[2022-07-12] MEDS: FOLIC ACID 1MG TAB PO SCH (09:48)
[2022-07-12] MEDS: FUROSEMIDE 10MG PER 1/2 TABLET PO SCH (09:48)
[2022-07-12] MEDS: DONEPEZIL 5 MG TAB PO SCH (09:48)
[2022-07-12] MEDS: ASPIRIN 81MG ENTERIC TABLET PO SCH (09:48)
[2022-07-12 14:00] VITALS: BP 118/68
[2022-07-12 17:47] VITALS: BP 117/57
[2022-07-12] MEDS: RIVAROXABAN 15MG TAB (XARELTO) PO SCH (18:00)
[2022-07-12] MEDS: QUEtiapine FUMARATE 25 MG TAB PO SCH (21:07)
[2022-07-12] MEDS: MONTELUKAST 10 MG TAB PO SCH (21:07)
[2022-07-13 06:31] VITALS: BP 115/75
[2022-07-13] MEDS: ADVAIR HFA 115/21MCG INHALER INH SCH ×2 (07:24→20:08)
[2022-07-13] MEDS: METOPROLOL TART 25 MG TABLET PO SCH ×2 (10:52→21:08)
[2022-07-13] MEDS: ASPIRIN 81MG ENTERIC TABLET PO SCH (10:53)
[2022-07-13] MEDS: FUROSEMIDE 10MG PER 1/2 TABLET PO SCH (10:53)
[2022-07-13] MEDS: DONEPEZIL 5 MG TAB PO SCH (10:53)
[2022-07-13] MEDS: FOLIC ACID 1MG TAB PO SCH (10:53)
[2022-07-13] MEDS: ATORVASTATIN 20 MG TAB PO SCH (10:53)
[2022-07-13] MEDS ORDERED: ARIC1TAB PO (15:03)
[2022-07-13] MEDS ORDERED: ATOR40TA75 PO (15:03)
[2022-07-13] MEDS ORDERED: QUET1TAB17 PO (15:03)
[2022-07-13] MEDS ORDERED: XARE15TA PO (15:03)
[2022-07-13] MEDS ORDERED: ASPI81TAEC PO (15:03)
[2022-07-13] MEDS: RIVAROXABAN 15MG TAB (XARELTO) PO SCH (17:57)
[2022-07-13] MEDS: QUEtiapine FUMARATE 25 MG TAB PO SCH (21:08)
[2022-07-13] MEDS: MONTELUKAST 10 MG TAB PO SCH (21:08)
[2022-07-13] MEDS: ACETAMINOPHEN TAB 650MG DOSE (2X325MG) PO PRN (21:08)
[2022-07-14 05:49] VITALS: BP 119/58
[2022-07-14] MEDS: ADVAIR HFA 115/21MCG INHALER INH SCH (07:52)
[2022-07-14] MEDS: ATORVASTATIN 20 MG TAB PO SCH (09:22)
[2022-07-14 09:23] VITALS: BP 119/58
[2022-07-14] MEDS: FOLIC ACID 1MG TAB PO SCH (09:23)
[2022-07-14] MEDS: FUROSEMIDE 10MG PER 1/2 TABLET PO SCH (09:23)
[2022-07-14] MEDS: ASPIRIN 81MG ENTERIC TABLET PO SCH (09:23)
[2022-07-14] MEDS: METOPROLOL TART 25 MG TABLET PO SCH (09:23)
[2022-07-14] MEDS: DONEPEZIL 5 MG TAB PO SCH (09:24)
== END 2022-07-14 12:30 | DRG 689 ==
LOC: M ED 19:07 → M ED INP 22:22 → ENRESERV 06-24 00:54 → M MSPAV 06-24 01:56 → M ICU 07-01 23:02 → M PCU 07-03 23:45 → M MS5PR 07-09 12:29
PROVIDERS: ADMIT Family Medicine; ATTEND Internal Medicine
PROC: B246ZZZ Ultrasonography of Right and Left Heart (ICD-10-PCS; principal; 2022-07-02)
DX: N39.0 Urinary tract infection, site not specified (principal); G93.41 Metabolic encephalopathy; I63.519 Cerebral infarction due to unspecified occlusion or stenosis of unspecified middle cerebral artery; F05 Delirium due to known physiological condition; I48.19 Other persistent atrial fibrillation; N18.4 Chronic kidney disease, stage 4 (severe); G47.33 Obstructive sleep apnea (adult) (pediatric); F03.90 Unspecified dementia, unspecified severity, without behavioral disturbance, psychotic disturbance, mood disturbance, and anxiety; J45.909 Unspecified asthma, uncomplicated; E83.42 Hypomagnesemia; R29.6 Repeated falls; I12.9 Hypertensive chronic kidney disease with stage 1 through stage 4 chronic kidney disease, or unspecified chronic kidney disease; E78.5 Hyperlipidemia, unspecified; G25.81 Restless legs syndrome; L30.4 Erythema intertrigo; K21.9 Gastro-esophageal reflux disease without esophagitis; E66.9 Obesity, unspecified; M19.90 Unspecified osteoarthritis, unspecified site; F17.210 Nicotine dependence, cigarettes, uncomplicated; B96.20 Unspecified Escherichia coli [E. coli] as the cause of diseases classified elsewhere; J10.1 Influenza due to other identified influenza virus with other respiratory manifestations; J10.81 Influenza due to other identified influenza virus with encephalopathy; Z79.01 Long term (current) use of anticoagulants; Z20.822 Contact with and (suspected) exposure to COVID-19; Z79.899 Other long term (current) drug therapy; Z86.73 Personal history of transient ischemic attack (TIA), and cerebral infarction without residual deficits; Z68.39 Body mass index [BMI] 39.0-39.9, adult

== ENCOUNTER → 2022-12-21 | Outpatient (CLI) | payer MEDICARE, MEDICAID ==
[~2022-12-21] MED LIST changes: +ALBU8.5H INH; +AMLO1TAB24 PO; +ARIC1TAB PO; +ASPI81TAEC PO; +ATOR1TAB21 PO; +ATOR40TA75 PO; +METO25TA4 PO; +NABU-71 PO; +QUET1TAB17 PO; +XARE15TA PO
== END ==
LOC: M RAD 13:20
PROVIDERS: ATTEND Student in an Organized Health Care Education/Training Program
DX: Z12.2 Encounter for screening for malignant neoplasm of respiratory organs (principal); F17.210 Nicotine dependence, cigarettes, uncomplicated